=== PATIENT | male | born 1990 | race Caucasian/White ===

== ENCOUNTER → 2017-06-29 | Outpatient (CLI) | payer BC ==
[~2017-06-29] MED LIST: ADVAIR PO; ADVIN10/60 INH; ALBU18002 PO
[2017-06-29 18:06] LABS: BASO % 0.2 %; BASO ABS # 0.02 K/uL (0-0.2); EOS % 7.3 %; EOS ABS # 0.66 K/uL (0-0.5); HEMATOCRIT 43.5 % (42-52); HEMOGLOBIN 14.6 g/dL (14.0-18.0); IG# 0.01 K/uL (0.00-0.02); LYMPH % 17.6 %; LYMPH ABS # 1.59 K/uL (1.2-3.4); MEAN CORPUSCULAR HEMOGLOBIN 28.5 pg (25-34); MEAN CORPUSCULAR HGB CONC 33.6 g/dl (32-36); MEAN PLATELET VOLUME 10.9 fL (7.4-10.4); MONO % 8.7 %; MONO ABS # 0.79 K/uL (0.11-0.59); NEUT % 66.1 %; NEUT ABS # 5.97 K/uL (1.4-6.5); PLATELET COUNT 239 K/uL (130-400); RED CELL DISTRIBUTION WIDTH CV 13.5 % (11.5-14.5); RED CELL DISTRIBUTION WIDTH SD 42.1 fL (36.4-46.3); WHITE BLOOD COUNT 9.04 K/uL (4.8-10.8)
[2017-06-29 18:31] LABS: ALBUMIN 3.6 gm/dl (3.4-5.0); ALT/SGPT 24 U/L (12-78); BLOOD UREA NITROGEN 7 mg/dl (7-18); CALCIUM 9.2 mg/dl (8.5-10.1); CARBON DIOXIDE 30 mmol/L (21-32); CREATININE 1.22 mg/dl (0.60-1.40); GLUCOSE 90 mg/dl (70-99); POTASSIUM 3.8 mmol/L (3.5-5.1); SODIUM 138 mmol/L (136-145)
[2017-06-29 18:34] LABS: ALKALINE PHOSPHATASE 107 U/L (45-117); AST/SGOT 13 U/L (15-37); TOTAL PROTEIN 7.6 gm/dl (6.4-8.2)
== END | disposition home or self-care (01) ==
LOC: C.LAB 16:28
PROVIDERS: ATTEND Physician Assistant
DX: R10.9 Unspecified abdominal pain (principal); K62.5 Hemorrhage of anus and rectum

== ENCOUNTER → 2017-07-07 | Day surgery (SDC) | payer BC ==
[2017-07-02 07:30] VITALS: Ht 177.8 cm; Wt 97.7 kg
[~2017-07-07] VITALS: Ht 177.8 cm; Wt 97.7 kg
[~2017-07-07] MED LIST changes: -ADVAIR PO; +HYDROCORTISONE SOD SUCCINATE 100 MG/2 ML VIAL ONE; +LIDOCAINE HCL 2% 2 ML VIAL (20MG/ML) ONE; +MIDAZOLAM HCL 1 MG/ML 2ML VIAL ONE; +ONDANSETRON INJ 2 MG/ML 2 ML VIAL ONE; +PROPOFOL IV EMULSION 10 MG/ML 20 ML VIAL IV ONE; +SODIUM CHLORIDE 0.9% 500ML 500 ML IV ONE
--- NOTE | 2017-07-07 12:09 | Endo History and Physical ---
History & Physical Date of Service: Jul 07, 2017. Chief Complaint: abdominal pain and rectal bleeding Referring Physician: no PCP assigned History of Present Illness 27 yo CM who presents for colonoscopy secondary to abdominal pain and rectal bleeding. Past Surgical History Hx Cardiac Surgery: No Hx Internal Defibrillator: No Hx Pacemaker: No Hx Abdominal Surgery: No Hx of Implantable Prosthesis: No Hx Post-Op Nausea and Vomiting: No Hx Cancer Surgery: No Hx Thoracic Surgery: No Hx Orthopedic: No Hx Urinary Tract Surgery: No Family History Colon CA, IBD Social History Smoking Status: Never Smoker Hx Substance Use: No Hx Alcohol Use: Yes (SOCIALLY) Allergies Coded Allergies: Amoxicillin (Unverified Allergy, Severe, HIVES, THROAT SWELLING, 07/02/17) Current Medications Reported Home Medications Medications Dose Route/Sig Max Daily Dose Days Date Category Advair Diskus 100/50 60 Dose (Fluticasone Prop/Salmeterol) 1 Ea Aerp 1 Puff INH BID 07/02/17 Reported Proair Respiclick (Albuterol Sulfate) 108 Mcg/Act Aer 1 Puff PO DAILY PRN 02/07/16 Reported Vital Signs Weight (Kilograms): 97.73 Height (Feet): 5 Height (Inches): 10 Date Time Temp Pulse Resp B/P (MAP) Pulse Ox O2 Delivery O2 Flow Rate FiO2 07/07/17 10:59 36.6 113 20 152/89 (110) 97 Room Air Physical Exam General Appearance: WD/WN, no apparent distress Respiratory/Chest: Auscultation: breath sounds normal Cardiovascular: Heart Auscultation: RRR Abdomen: Bowel Sounds: normal Inspection & Palpation: soft, non-distended, no tenderness, guarding & rebound Assessment and Plan Assessment: 27 yo CM who presents for colonoscopy secondary to abdominal pain and rectal bleeding. Plan: Proceed with colonoscopy.
--- NOTE | 2017-07-07 12:49 | GI REPORT ---
Procedure Date: 07/07/2017 11:44 AM Procedure: Colonoscopy Indications: Generalized abdominal pain, Rectal bleeding Medicines: Monitored Anesthesia Care Complications: No immediate complications. Estimated Blood Loss: Estimated blood loss: none. Procedure: Pre-Anesthesia Assessment: - Prior to the procedure, a History and Physical was performed, and patient medications and allergies were reviewed. The patient's tolerance of previous anesthesia was also reviewed. The risks and benefits of the procedure and the sedation options and risks were discussed with the patient. All questions were answered, and informed consent was obtained. Prior Anticoagulants: The patient has taken no previous anticoagulant or antiplatelet agents. ASA Grade Assessment: II - A patient with mild systemic disease. After reviewing the risks and benefits, the patient was deemed in satisfactory condition to undergo the procedure. After I obtained informed consent, the scope was passed under direct vision. Throughout the procedure, the patient's blood pressure, pulse, and oxygen saturations were monitored continuously. The scope was introduced through the anus and advanced to the terminal ileum. The colonoscopy was performed without difficulty. The patient tolerated the procedure well. The quality of the bowel preparation was good. The terminal ileum, ileocecal valve, appendiceal orifice, and rectum were photographed. Findings: The perianal and digital rectal examinations were normal. Inflammation characterized by erythema, loss of vascularity and confluent ulcerations was found in a continuous and circumferential pattern from the rectum to the cecum. No sites were spared. This was severe. Biopsies were taken with a cold forceps for histology. Fluid aspiration for stool studies was performed in the entire colon. Impression: - Pancolitis ulcerative colitis. Inflammation was found from the rectum to the cecum. This was severe. Biopsied. - Fluid aspiration was performed. Recommendation: - Resume previous diet. - Repeat colonoscopy for surveillance based on pathology results. - Return to GI office as previously scheduled. - Use prednisone 40 mg PO once a day and taper over 8 weeks. Bladimir Garcia DO 07/07/2017 12:48:53 PM This report has been signed electronically. Note Initiated On: 07/07/2017 11:44 AM I attest to the content of the Intraoperative Record and orders documented therein, exceptions below
--- NOTE | 2017-07-07 12:58 | Anesthesiology Progress Note ---
Anesthesia Post Op Note Date & Time Jul 07, 2017 at 12:57 Vital Signs Pain Intensity: 0 Vital Signs Past 12 Hours Date Time Temp Pulse Resp B/P (MAP) Pulse Ox O2 Delivery O2 Flow Rate FiO2 07/07/17 12:53 90 20 130/83 (99) 98 Room Air 07/07/17 12:37 99 20 128/77 (94) 94 Room Air 07/07/17 10:59 36.6 113 20 152/89 (110) 97 Room Air Notes Mental Status: alert / awake / arousable, participated in evaluation Pt Amnestic to Procedure: Yes Nausea / Vomiting: adequately controlled Pain: adequately controlled Airway Patency, RR, SpO2: stable & adequate BP & HR: stable & adequate Hydration State: stable & adequate Anesthetic Complications: no major complications apparent
[2017-07-07 13:08] VITALS: BP 140/92; PULSE 84; O2SAT 100
--- NOTE | 2017-07-07 13:11 | Discharge Instructions ---
Endoscopy Patient Instructions Date / Procedure(s) Performed Jul 07, 2017. Colonoscopy Allergy Information Coded Allergies: Amoxicillin (Unverified Allergy, Severe, HIVES, THROAT SWELLING, 07/02/17) Discharge Date / Findings Jul 07, 2017. Ulcerative pancolitis s/p biopsies Stool aspirate collected Medication Instructions 1) Start Prednisone taper at 40mg by mouth daily for 7 days, then decrease by 5 mg each week for an 8 week total taper. 2) OK to resume all medications today as prescribed Reported Home Medications Medications Dose Route/Sig Max Daily Dose Days Date Category Advair Diskus 100/50 60 Dose (Fluticasone Prop/Salmeterol) 1 Ea Aerp 1 Puff INH BID 07/02/17 Reported Proair Respiclick (Albuterol Sulfate) 108 Mcg/Act Aer 1 Puff PO DAILY PRN 02/07/16 Reported Provider Instructions Activity Restrictions - No exercising or heavy lifting for 24 hours. - Do not drink alcohol the day of the procedure. - Do not drive a car or operate machinery until the day after the procedure. - Do not make any important decisions or sign important papers in 24 hours after the procedure. Following Day: - Return to full activity which may include returning to work/school. Diet Start your diet with liquids and light foods (jello, soup, juice, toast). Then eat your usual diet if not nauseated. Treatment For Common After Affects For mild abdominal pain, bloating, or excessive gas: - Rest - Eat lightly - Lie on right side Follow-Up Information Follow-up with no PCP assigned as scheduled Anesthesia Information What You Should Know You have had a procedure that required some medicine to reduce anxiety and discomfort. This treatment is called moderate sedation. After receiving the treatment, you may be sleepy, but you will be able to breathe on your own. The effects of the treatment may last for several hours. Follow these instructions along with Activity/Diet recommendations noted above: * Do NOT do anything where dizziness or clumsiness would be dangerous. * Rest quietly at home today, then you can be up and about tomorrow. * Have a responsible person stay with you the rest of today. * You may have had an I.V. today. If so, you may take the dressing off later today. Recommendations Call your doctor if: * Trouble breathing * Continuous vomiting for more than 24 hours * Temperature above 101 degrees * Severe abdominal pain or bloating * Pain not relieved by pain medicine ordered * There is increased drainage or redness from any incision * A large amount of rectal bleeding greater than 2-3 tablespoons. (If you had a polyp/s removed or have hemorrhoids, a small amount of blood - from the rectum is to be expected.) * You have any unanswered questions or concerns. IN THE EVENT OF A SERIOUS EMERGENCY, GO TO THE NEAREST EMERGENCY ROOM Your discharge instructions were prepared by provider Bladimir Garcia. Patient Instructions Signature Page Tyrell Farley Patient (or Guardian) Signature/Date: I have read and understand the instructions given to me by my caregivers. Caregiver/RN/Doctor Signature/Date: The above-named patient and/or guardian has received patient instructions on this date. + Original Patient Signature Page (only) stays with chart. Please make copy for patient.
== END | disposition home or self-care (01) ==
LOC: C.GI 10:41
PROVIDERS: ATTEND Internal Medicine
DX: R10.9 Unspecified abdominal pain (principal); K52.9 Noninfective gastroenteritis and colitis, unspecified; K62.6 Ulcer of anus and rectum; K63.3 Ulcer of intestine; K62.5 Hemorrhage of anus and rectum; J45.909 Unspecified asthma, uncomplicated; Z80.0 Family history of malignant neoplasm of digestive organs; Z88.1 Allergy status to other antibiotic agents; Z90.89 Acquired absence of other organs

== ENCOUNTER → 2017-08-03 | Outpatient (CLI) | payer BC ==
[~2017-08-03] MED LIST changes: -HYDROCORTISONE SOD SUCCINATE 100 MG/2 ML VIAL ONE; -LIDOCAINE HCL 2% 2 ML VIAL (20MG/ML) ONE; -MIDAZOLAM HCL 1 MG/ML 2ML VIAL ONE; -ONDANSETRON INJ 2 MG/ML 2 ML VIAL ONE; -PROPOFOL IV EMULSION 10 MG/ML 20 ML VIAL IV ONE; -SODIUM CHLORIDE 0.9% 500ML 500 ML IV ONE
[2017-08-03 12:45] LABS: BASO % 0.1 %; BASO ABS # 0.01 K/uL (0-0.2); EOS % 0.4 %; EOS ABS # 0.05 K/uL (0-0.5); HEMATOCRIT 42.5 % (42-52); HEMOGLOBIN 13.5 g/dL (14.0-18.0); IG# 0.03 K/uL (0.00-0.02); LYMPH % 6.4 %; LYMPH ABS # 0.79 K/uL (1.2-3.4); MEAN CELL VOLUME 87.4 fL (80-100); MEAN CORPUSCULAR HEMOGLOBIN 27.8 pg (25-34); MEAN CORPUSCULAR HGB CONC 31.8 g/dl (32-36); MEAN PLATELET VOLUME 10.6 fL (7.4-10.4); MONO % 3.7 %; MONO ABS # 0.46 K/uL (0.11-0.59); NEUT % 89.2 %; NEUT ABS # 10.96 K/uL (1.4-6.5); PLATELET COUNT 221 K/uL (130-400); RED CELL DISTRIBUTION WIDTH CV 15.1 % (11.5-14.5); RED CELL DISTRIBUTION WIDTH SD 48.3 fL (36.4-46.3)
[2017-08-03 12:52] LABS: ALBUMIN 3.9 gm/dl (3.4-5.0); ALT/SGPT 32 U/L (12-78); AST/SGOT 12 U/L (15-37); BLOOD UREA NITROGEN 9 mg/dl (7-18); CALCIUM 8.9 mg/dl (8.5-10.1); CARBON DIOXIDE 29 mmol/L (21-32); CREATININE 1.13 mg/dl (0.60-1.40); GLUCOSE 109 mg/dl (70-99); POTASSIUM 4.2 mmol/L (3.5-5.1); SODIUM 138 mmol/L (136-145)
[2017-08-03 12:55] LABS: ALKALINE PHOSPHATASE 72 U/L (45-117); TOTAL PROTEIN 7.5 gm/dl (6.4-8.2)
[2017-08-03 13:41] LABS: HEP C IGG 13 YRS+OLDER_RFLX NEG (NEG)
[2017-08-05 07:56] LABS: QUANTIF MITOGEN-NIL 9.27 IU/ML; QUANTIFERON NEGATIVE (NEGATIVE); QUANTIFERON NIL 0.03 IU/ML
[2017-08-05 13:40] LABS: VARICELLA ZOS VIR IGM AB <=0.90 (<=0.90)
== END | disposition home or self-care (01) ==
LOC: C.LAB 10:57
PROVIDERS: ATTEND Physician Assistant
DX: K51.00 Ulcerative (chronic) pancolitis without complications (principal)

== ENCOUNTER 2019-06-15 18:11 | Inpatient (IN) ==
[2019-06-15] MEDS ORDERED: ONDANSETRON INJ 2 MG/ML 2 ML VIAL IV STA (18:34)
[2019-06-15] MEDS ORDERED: KETOROLAC 30 MG/ML VIAL IV STA (18:34)
[2019-06-15] MEDS ORDERED: SODIUM CHLORIDE 0.9% 1000ML 1,000 ML IV SCH (18:45)
[2019-06-15 19:15] LABS: Hematocrit (blood only) 30.9 % (42-52); Hemoglobin 10.4 g/dL (14.0-18.0); Mean Corpuscular Hemoglobin 27.4 pg (25-34); Mean Corpuscular Hgb Conc 33.7 g/dL (32-36); Mean Corpuscular Volume 81.5 fL (80-100); Mean Platelet Volume 9.2 fL (7.4-10.4); Platelet Count 560 K/uL (130-400); RDW Coefficient of Variation 13.3 % (11.5-14.5); RDW Standard Deviation 38.7 fL (36.4-46.3); Red Blood Count 3.79 M/uL (4.7-6.1); White Blood Count 11.36 K/uL (4.8-10.8)
[2019-06-15] MEDS: HYDROmorphone INJ 1 MG/ML SYRINGE IV PRN ×2 (19:21→21:01)
[2019-06-15 19:30] LABS: BUN Creatinine Ratio 10.5 (10-20); Creatinine Clr Calc Pharmacy 129.4 ml/min; Est GFR (African American) 137.4; Est GFR (Non-African American) 118.6; Potassium 3.9 mmol/L (3.5-5.1)
[2019-06-15 19:33] LABS: Albumin Globulin Ratio 0.4 (0.9-2); Bilirubin,Total 0.2 mg/dl (0.2-1); C Reactive Protein 16.5 mg/dl (0-0.29); Globulin 4.8 gm/dl (2.5-4.0); Total Protein 6.8 gm/dl (6.4-8.2)
[2019-06-15] MEDS ORDERED: IOVERSOL 100ml IV PRN (19:47)
[2019-06-15 19:59] LABS: Basophils # (auto) 0.01 K/uL (0-0.2); Basophils % (auto) 0.1 %; Eosinophils # (auto) 0.02 K/uL (0-0.5); Eosinophils % (auto) 0.2 %; Immature Granulocytes # (auto) 0.18 K/uL (0.00-0.02); Immature Granulocytes % (auto) 1.6 %; Lymphocytes # (auto) 1.58 K/uL (1.2-3.4); Lymphocytes % (auto) 13.9 %; Monocytes % (auto) 15.8 %; Neutrophils # (auto) 7.77 K/uL (1.4-6.5); Neutrophils % (auto) 68.4 %
--- NOTE | 2019-06-15 19:59 | CT Scan Report ---
CT abd pelvis IV con only CT DOSE: 379.02 mGy.cm HISTORY: Pain Pt c/o abd pain TECHNIQUE: Multiaxial CT images of the abdomen and pelvis were performed following the use of intrave nous contrast. A dose lowering technique was utilized adhering to the principles of ALARA. COMPARISON STUDY: 06/09/2019 FINDINGS: Lung bases are clear. Liver spleen and pancreas are unremarkable. There continues to be general colonic wall thickening and/or wall edematous change throughout the bul k of the colon. There is a component of pericolonic infiltrative change. These findings are similar. There is no evidence for free air. There is no evidence for abscess or co llection. There are several reactive mesenteric nodes. These are similar. The appendix is normal. IMPRESSION: 1. No significant change from the prior study. 2. Findings again considered consistent with that of a generalized colitis and/or ulcerative colitis. 3. Moderate stable pericolonic infiltrative change. 4. No evidence for abscess collection or obstruction. ACT 112: Negative or not required by law. The above report was generated using voice recognition software. It may contain grammatical, syntax or spelling errors. Electronically signed by: Kishor Ventura M.D. 06/15/2019 7:58 PM
--- NOTE | 2019-06-15 20:50 | History & Physical Report ---
Date of Service June 15, 2019 Assessment & Plan (1) Ulcerative colitis: Tyrell Farley is a 28 year young man with history of ulcerative colitis here for UC flare Ulcerative colitis Patient in middle of what appears to be a UC flare, Symptoms started after missing Remicade infusion Patient clearly necroinflammatory state with elevated platelet count 546, CRP of 16.5, and we will medically prophylax with Lovenox To treat this acute flare we will treat with IV methylprednisolone 20 mg every 8 hours On-call hand ironer contacted who recommended admission and will see patient in the morning Otherwise supportive care with Zofran for nausea Tylenol Percocet and morphine for pain control depending on severity Normal saline with 20 mEq KCl infusing at 120 mils per hour patient is quite dehydrated from not eating or drinking very much Hematochezia Secondary to UC flare Hemoglobin has dropped 2 points in last 5 days to 10.4. No indication for transfusion at this time but will recheck H&H in the morning Asthma Stable we will continue on home Advair and PRN breathing treatments F/E/N: Normal saline with 20 mEq of potassium chloride at 120/h DVT prophylaxis: Lovenox 40 subcu daily DIS p.o.: Admitted to [facility] for steroids supportive care and GI consults (2) Asthma: History of Present Illness Primary Care Provider: NO PCP Mr. Tyrell Farley is a 28-year-old young man with a past medical history significant of asthma which is well controlled on Advair twice daily and ulcerative colitis first diagnosed in 2016. Patient has been on Remicade therapy started in December 2016 which seems to control his symptoms very well he missed many doses over the summer secondary to arguing with his insurance company and he missed another dose in April after just forgetting to get it done patient has noticed blood in his stool for about the last month, in that time he is also started to develop abdominal pain he describes abdominal pain as left lower quadrant radiating up from there it has gotten progressively worse he describes his stool as having radha blood in it and be extremely loose he has not had a solid bowel movement in some time and the pain in his abdomen is getting getting progressively worse currently he says his pain is as bad as 10 out of 10 before he was on pain medication in the ED he says without a doubt the worst pain he is ever experienced. Patient has had several dry heaving episodes but does not feel nauseous he says is from the pain also of note he has had a greatly decreased appetite for last month getting worse he is also drinking less although of late mom has been forcing him to drink more buying propels Gatorade's fruit juices water whenever he will drink. He declines any other symptoms, no chest pain no shortness of breath no palpitations no fever no chills no recent sick contacts. Patient presents emergency department a week ago for similar symptoms where he was treated with pain medication and Zofran and discharged without steroids to follow-up with GI he has been suffering at home and decided to come back in today. In emergency department patient was given IV fluid as well as Dilaudid for pain, pain is currently better controlled though he still rates it as a 7. Patient claims there is still blood in stool and he is will provide a sample of that. 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 Patient does smoke cigarettes about a pack a day When discussing CODE STATUS with patient he curiously decided that he would prefer to be DNR/DNI his mother got upset with him and he decided to be full code. Allergies Allergy/AdvReac Type Severity Reaction Status Date / Time amoxicillin Allergy Severe HIVES, Verified 06/15/19 20:48 THROAT SWELLING Home Medications Home Medications Medication Instructions Recorded Confirmed Type Remicade 1 dose IV DIRECTED 07/22/18 06/15/19 History albuterol sulfate [ProAir HFA] 2 puff INHALATION Q4H PRN 07/22/18 06/15/19 History fluticasone propion-salmeterol 2 puff INHALATION BID 06/09/19 06/15/19 History [Wixela Inhub] acetaminophen-codeine 1 tab PO TID PRN 06/15/19 06/15/19 History [Tylenol-Codeine #3] ondansetron 4 mg TRANSLINGUAL Q8H PRN 06/15/19 06/15/19 History Past Med/Surg History Medical History Asthma inhalers daily/prn Ulcerative colitis Surgical History History of colonoscopy History of tonsillectomy History of wisdom tooth extraction Family History Other No family history of adverse response to anesthesia Social History Preferred Language: Greenlandic Communication Ability: Effective Materials Manager Required: No Beliefs That Will Affect Care: None Current Living Situation: Parent and Family Current Living Situation Comment: Lives with parents Other Information That Helps Us Care for You: No Feels Safe at Home: Yes Safety Concerns: Feels Safe At This Time Smoking Status: Current every day smoker Tobacco Type: cigarettes ; Cigarettes Per Day: 6 a day ; Second Hand Exposure: No ; Tobacco Cessation Education Requested by Patient: No Hx Alcohol Use: No Hx Substance Use: No Review of Systems Constitutional: + fatigue and + anorexia; no fever, no chills and no body aches Eyes: no problem reported Ear, Nose, Mouth, Throat: no problem reported Respiratory: no problem reported Cardiovascular: no problem reported Gastrointestinal: + abdominal pain (Worst pain of his life), + early satiety, + diarrhea/loose stools and + blood in stools; no nausea and no vomiting Genitourinary: no dysuria Integumentary: no rash and no lesions Physical Exam Physical Exam: Constitutional: Uncomfortable appearing 28 year old gentleman lying in bed with mother and grandma present in room Eyes: EOMMI bilaterally ENMT: No abnormalities detected Respiratory: Breathing comfortably, chest expansion equal, lung sounds vesicular in all lung yang. Cardiovascular: Heart sounds dual, no murmurs rubs skips or gallops, regular rate regular rhythm Gastrointestinal: Abdomen soft, very tender across abdomen Skin: Warm dry well perfused Results & Data Vital Signs (Past 12 Hours) Vital Signs Temp Pulse Pulse Resp BP BP Pulse Ox 06/15/19 20:00 96 H 16 147/88 H 98 06/15/19 19:30 91 H 15 133/93 97 06/15/19 19:26 90 18 146/87 H 99 06/15/19 19:01 98 06/15/19 18:14 36.6 C 112 H 18 142/88 H 98 Supervising Physician Co-Signing Physician Notes Patient seen and examined, chart reviewed, case discussed with Dr. Topete and I agree with his assessment and plan as documented above. Briefly, patient is a 28-year-old male with history of ulcerative colitis previously on steroids now on Remicade presenting with suspected acute flare. Patient had some treatment labs in his Remicade due to insurance issues. Presents with abdominal pain, bloody diarrhea. On exam he is afebrile, hemodynamically stable, nontoxic in appearance, flat affect Skinwarm, dry, intact, no rashes/lesions HEENTnormocephalic/atraumatic, pupils equal and react to light, moist mucous membranes, no oropharyngeal lesions, neck supple Heart+ S1/S2, regular, no murmur/rub/gallops Lungsequal air entry bilaterally, no rales/rhonchi/wheezes Abdomen + bowel sounds, soft and diffusely tender throughout, no rebound or peritoneal signs but with voluntary guarding Extremitieswarm, well-perfused Labs and images reviewed. Significant for leukocytosis with WBC = 11.36, normochromic/normocytic anemia Hgb = 10.4 and HCT = 30.9, elevated platelets at 560, elevated ESR and CRP CT of the abdomen consistent with generalized colitis without abscess or obstruction Assessment/[id number] male with history of UC presenting with suspected acute flare in setting of missed Remicade doses Admit to medical floor Solu-Medrol 20 mg IV every 8 Morphine as needed for pain IV fluid and electrolyte repletion Question starting mesalamine GI consultation appreciated Remainder of plan as above Resident Activity Tracking Resident Involvement: Resident Care Provided Care Provided: Adult Hospital Medicine (1) Ulcerative colitis Digestive disease complication type: unspecified complication Ulcerative colitis location: unspecified ulcerative colitis location Qualified Code(s): K51.919 - Ulcerative colitis, unspecified with unspecified complications
[2019-06-15 21:02] LABS: Appearance Urine Clear (Clear); Bilirubin Urine Negative (Negative); Blood Urine Negative (Negative); Color Urine Yellow; Glucose Urine UA Negative (Negative); Ketones Urine Negative (Negative); Leukocyte Esterase Urine Negative (Negative); Nitrite Urine Negative (Negative); Protein Urine Negative (Negative); Specific Gravity Urine > 1.045 (1.000-1.030); Urobilinogen Urine Negative (Negative); pH Urine 7.5 (4.5-7.5)
--- NOTE | 2019-06-15 22:29 | Emergency Department Note ---
Entered by Joselin Braun acting as a scribe for Dixon Forrest MD History of Present Illness General Chief complaint: GI Assessment Stated complaint: COLITIS FLARE UP Time Seen by Provider: 06/15/19 18:27 Source: patient Mode of arrival: ambulatory Limitations: no limitations History of Present Illness Onset (ago): day(s) 6 Location: abdomen Radiation: non-radiation Pain Consistency: + constant Maximum Pain Intensity: 10 Current Pain Intensity: 10 Relieved By: + medication (Tylenol) Exacerbated By: + none Associated symptoms: + loss of appetite and + other (+abdominal pain, +dry heaves, +watery diarrhea, -blood in stool) Treatments prior to arrival: none The patient is a 28 year old male who presents to the ED with complaints of needing a GI assessment. He sees Dr. Garcia for a history of ulcerative colitis and states he has been experiencing increased abdominal pain for the past 1 week. He rates his pain as a 10/10 in severity. Tylenol has provided minimal relief and he has not had any in 2 days. He has not been vomiting but admits to dry heaves and a loss of appetite. He is normally on Remicade and last had an infusion on 06/01/2019. He cannot remember the last time he was on steroids for his symptoms. He states his stools have been "watery" but denies any blood in the stool. His next follow up with GI is not until June 26. Home Medications Home Medications Medication Instructions Recorded Confirmed Type Remicade 1 dose IV DIRECTED 07/22/18 06/15/19 History albuterol sulfate [ProAir HFA] 2 puff INHALATION Q4H PRN 07/22/18 06/15/19 History fluticasone propion-salmeterol 2 puff INHALATION BID 06/09/19 06/15/19 History [Wixela Inhub] acetaminophen-codeine 1 tab PO TID PRN 06/15/19 06/15/19 History [Tylenol-Codeine #3] ondansetron 4 mg TRANSLINGUAL Q8H PRN 06/15/19 06/15/19 History Allergies Allergy/AdvReac Type Severity Reaction Status Date / Time amoxicillin Allergy Severe HIVES, Verified 06/15/19 20:48 THROAT SWELLING Past Med/Surg History Medical History Asthma inhalers daily/prn Ulcerative colitis Surgical History History of colonoscopy History of tonsillectomy History of wisdom tooth extraction Family History Other No family history of adverse response to anesthesia Social History Preferred Language: Haitian Communication Ability: Effective Bottle House Quality Control Technician Required: No Beliefs That Will Affect Care: None Current Living Situation: Parent and Family Current Living Situation Comment: Lives with parents Other Information That Helps Us Care for You: No Feels Safe at Home: Yes Safety Concerns: Feels Safe At This Time Smoking Status: Current every day smoker Tobacco Type: cigarettes ; Cigarettes Per Day: 6 a day ; Second Hand Exposure: No ; Tobacco Cessation Education Requested by Patient: No Hx Alcohol Use: No Hx Substance Use: No Review of Systems See HPI for pertinent positives & negatives. and A total of 10 systems reviewed and were otherwise negative Physical Exam Vital Signs Vital Signs - 24 hr 06/15/19 18:14 06/15/19 19:01 06/15/19 19:26 Temperature 36.6 C Temperature Source Oral Pulse Rate 112 H Pulse Rate [Apical] 90 Pulse Rate from SpO2 Sensor Respiratory Rate 18 18 Respiratory Effort / Characteristics Non-Labored Respiratory Depth Normal Blood Pressure 142/88 H Blood Pressure [Left Arm] 146/87 H Blood Pressure Mean 106 Blood Pressure Mean [Left Arm] 106 Pulse Oximetry 98 98 99 Oxygen Delivery Method Room Air Room Air Room Air Sepsis Recent Fever Within 48 Hours No Sepsis New/Unexplained Change in Mental Status No Sepsis Action Taken by Nursing No Action Required 06/15/19 19:30 06/15/19 20:00 06/15/19 20:30 Temperature Temperature Source Pulse Rate 91 H 96 H 81 Pulse Rate [Apical] Pulse Rate from SpO2 Sensor 91 H 98 H Respiratory Rate 15 16 14 Respiratory Effort / Characteristics Respiratory Depth Blood Pressure 133/93 147/88 H 139/89 Blood Pressure [Left Arm] Blood Pressure Mean 99 97 103 Blood Pressure Mean [Left Arm] Pulse Oximetry 97 98 Oxygen Delivery Method Room Air Room Air Sepsis Recent Fever Within 48 Hours Sepsis New/Unexplained Change in Mental Status Sepsis Action Taken by Nursing 06/15/19 21:00 Temperature Temperature Source Pulse Rate 96 H Pulse Rate [Apical] Pulse Rate from SpO2 Sensor 97 H Respiratory Rate 21 Respiratory Effort / Characteristics Respiratory Depth Blood Pressure 151/89 H Blood Pressure [Left Arm] Blood Pressure Mean 100 Blood Pressure Mean [Left Arm] Pulse Oximetry 97 Oxygen Delivery Method Room Air Sepsis Recent Fever Within 48 Hours Sepsis New/Unexplained Change in Mental Status Sepsis Action Taken by Nursing GENERAL: Awake, alert, well-appearing, in no acute distress HENT: Normocephalic, atraumatic. Oropharynx unremarkable. EYES: Normal conjunctiva. Sclera non-icteric. NECK: Supple. No nuchal rigidity. FROM. No JVD. RESPIRATORY: Clear to auscultation. CARDIAC: Regular rate, normal rhythm. Extremities warm and well perfused. Pulses equal. ABDOMEN: Soft, non-distended. Minimal tenderness to palpation in LLQ. No rebound or guarding. No masses. RECTAL: Deferred. MUSCULOSKELETAL: Chest examination reveals no tenderness. The back is sym metrical on inspection without obvious abnormality. There is no CVA tenderness to palpation. No joint edema. LOWER EXTREMITIES: Calves are equal size bilaterally and non-tender. No edema. No discoloration. NEURO: Normal sensorium. No sensory or motor deficits noted. SKIN: No rash or jaundice noted. Course Course 1829: The patient was evaluated in room A12 and a complete history and physical were performed. 2014: I discussed the patients case with Dr. Costello, Gastroenterology. If he tests negative for C-Diff, we can start him on steroids. The patient will be further evaluated. 2042: I [facility] the [facility] The patient will be further evaluated. 2044: I reevaluated the patient. He is resting comfortably. I discussed his results and my recommendation he remain in the hospital for further evaluation and management and he is agreeable with the plan. Administered Medications Enoxaparin Sodium (Lovenox) 40 mg SQ Q24H GIFTY Stop: 07/15/19 22:29 Last Admin: 06/15/19 23:01 Dose: 40 mg Documented by: [id number] Fluticasone/Vilanterol (Breo Ellipta 200/25 Mcg Inh) 1 puffs INH DAILY GIFTY; Protocol Stop: 07/15/19 22:59 Last Admin: 06/15/19 23:02 Dose: 1 puffs Documented by: [id number] Potassium Chloride/Sodium Chloride (Normal Saline W/20 Meq Kcl) 20 meq in 1,000 mls @ 120 mls/hr IV .Q8H20M GIFTY Stop: 07/15/19 22:44 Last Admin: 06/15/19 23:01 Dose: 120 mls/hr Documented by: [id number] Methylprednisolone 20 mg/ (Syringe) 0.32 mls @ 1.5 mls/min IV Q8H GIFTY Stop: 07/15/19 22:59 Last Admin: 06/15/19 23:01 Dose: 1.5 mls/min Documented by: [id number] Morphine Sulfate (Morphine Sulfate) 2 mg IV Q2H PRN PRN Reason: Pain Stop: 06/29/19 22:29 Last Admin: 06/15/19 23:39 Dose: 2 mg Documented by: [id number] Discontinued Medications Hydromorphone HCl (Dilaudid) 1 mg IV Q15M PRN PRN Reason: Pain Stop: 06/29/19 18:33 Last Admin: 06/15/19 21:01 Dose: 1 mg Documented by: [id number] Admin: 06/15/19 19:21 Dose: 1 mg Documented by: [id number] Sodium Chloride (Nss 1000ml) 1,000 mls @ 999 mls/hr IV .Q1H1M GIFTY Stop: 06/15/19 19:45 Last Infusion: 06/15/19 20:03 Dose: 0 mls/hr Documented by: [id number] Admin: 06/15/19 19:02 Dose: 999 mls/hr Documented by: [id number] Ioversol (Optiray 320 100ml) 93 ml IV ONCE PRN PRN Reason: Interaction Checking Stop: 06/19/19 19:46 Last Admin: 06/15/19 19:47 Dose: 93 ml Documented by: [id number] Ketorolac Tromethamine (Toradol) 30 mg IV NOW STA Stop: 06/15/19 18:35 Last Admin: 06/15/19 19:21 Dose: 30 mg Documented by: [id number] Ondansetron HCl (Zofran) 4 mg IV NOW STA Stop: 06/15/19 18:35 Last Admin: 06/15/19 19:21 Dose: 4 mg Documented by: [id number] Medical Decision Making Differential Diagnosis Differential diagnoses includes but is not limited to gastritis, peptic ulcer disease, GERD, gallbladder disease, pancreatitis, small bowel obstruction, acute coronary syndrome, pericarditis, ischemic bowel, irritable bowel disease, irritable bowel syndrome, appendicitis, diverticulitis, malignancy, hernia, urinary tract infection, torsion, perforation, trauma, infectious. Medical Records Attestation: I reviewed the patient's medical records. Home Medications Current Medication List: was personally reviewed by me Laboratory Data Attestation: I reviewed the patient's lab results. Result diagrams: 06/15/19 19:00 06/15/19 19:00 Lab Results 06/15/19 06/15/19 06/15/19 Range/Units 19:00 19:00 19:00 WBC 11.36 H (4.8-10.8) K/uL RBC 3.79 L (4.7-6.1) M/uL Hgb 10.4 L (14.0-18.0) g/dL Hct 30.9 L (42-52) % MCV 81.5 (80-100) fL MCH 27.4 (25-34) pg MCHC 33.7 (32-36) g/dL RDW Std Deviation 38.7 (36.4-46.3) fL RDW Coeff of Marek 13.3 (11.5-14.5) % Plt Count 560 H (130-400) K/uL MPV 9.2 (7.4-10.4) fL Immature Gran % (Auto) 1.6 % Neut % (Auto) 68.4 % Lymph % (Auto) 13.9 % [place] % (Auto) 15.8 % Eos % (Auto) 0.2 % Baso % (Auto) 0.1 % Immature Gran # (Auto) 0.18 H (0.00-0.02) K/uL Neut # (Auto) 7.77 H (1.4-6.5) K/uL Lymph # (Auto) 1.58 (1.2-3.4) K/uL [place] # (Auto) 1.80 H (0.11-0.59) K/uL Eos # (Auto) 0.02 (0-0.5) K/uL Baso # (Auto) 0.01 (0-0.2) K/uL ESR > 90 H (0-14) mm/hr Sodium 134 L (136-145) mmol/L Potassium 3.9 (3.5-5.1) mmol/L Chloride 98 (98-107) mmol/L Carbon Dioxide 31 (21-32) mmol/L Anion Gap 5.0 (3-11) BUN 9 (7-18) mg/dl Creatinine 0.85 (0.6-1.4) mg/dl Est Cr Clr Drug Dosing 129.4 ml/min Est GFR ( Amer) 137.4 Est GFR (Non-Af Amer) 118.6 BUN/Creatinine Ratio 10.5 (10-20) Glucose 132 H (70-99) mg/dl Calcium 9.0 (8.5-10.1) mg/dl Total Bilirubin 0.2 (0.2-1) mg/dl AST 17 (15-37) U/L ALT 33 (12-78) U/L Alkaline Phosphatase 72 (45-117) U/L C-Reactive Protein 16.50 H (0-0.29) mg/dl Total Protein 6.8 (6.4-8.2) gm/dl Albumin 2.0 L (3.4-5.0) gm/dl Globulin 4.8 H (2.5-4.0) gm/dl Albumin/Globulin Ratio 0.4 L (0.9-2) Lipase 104 (73-393) U/L Urine Color Urine Appearance (Clear) Urine pH (4.5-7.5) Ur Specific [place] (1.000-1.030) Urine Protein (Negative) Urine Glucose (UA) (Negative) Urine Ketones (Negative) Urine Blood (Negative) Urine Nitrite (Negative) Urine Bilirubin (Negative) Urine Urobilinogen (Negative) Ur Leukocyte Esterase (Negative) Stl C. diff Tox B Gene (Neg) 06/15/19 06/15/19 Range/Units 20:44 20:44 WBC (4.8-10.8) K/uL RBC (4.7-6.1) M/uL Hgb (14.0-18.0) g/dL Hct (42-52) % MCV (80-100) fL MCH (25-34) pg MCHC (32-36) g/dL RDW Std Deviation (36.4-46.3) fL RDW Coeff of Marek (11.5-14.5) % Plt Count (130-400) K/uL MPV (7.4-10.4) fL Immature Gran % (Auto) % Neut % (Auto) % Lymph % (Auto) % [place] % (Auto) % Eos % (Auto) % Baso % (Auto) % Immature Gran # (Auto) (0.00-0.02) K/uL Neut # (Auto) (1.4-6.5) K/uL Lymph # (Auto) (1.2-3.4) K/uL [place] # (Auto) (0.11-0.59) K/uL Eos # (Auto) (0-0.5) K/uL Baso # (Auto) (0-0.2) K/uL ESR (0-14) mm/hr Sodium (136-145) mmol/L Potassium (3.5-5.1) mmol/L Chloride (98-107) mmol/L Carbon Dioxide (21-32) mmol/L Anion Gap (3-11) BUN (7-18) mg/dl Creatinine (0.6-1.4) mg/dl Est Cr Clr Drug Dosing ml/min Est GFR ( Amer) Est GFR (Non-Af Amer) BUN/Creatinine Ratio (10-20) Glucose (70-99) mg/dl Calcium (8.5-10.1) mg/dl Total Bilirubin (0.2-1) mg/dl AST (15-37) U/L ALT (12-78) U/L Alkaline Phosphatase (45-117) U/L C-Reactive Protein (0-0.29) mg/dl Total Protein (6.4-8.2) gm/dl Albumin (3.4-5.0) gm/dl Globulin (2.5-4.0) gm/dl Albumin/Globulin Ratio (0.9-2) Lipase (73-393) U/L Urine Color Yellow Urine Appearance Clear (Clear) Urine pH 7.5 (4.5-7.5) Ur Specific [place] > 1.045 H (1.000-1.030) Urine Protein Negative (Negative) Urine Glucose (UA) Negative (Negative) Urine Ketones Negative (Negative) Urine Blood Negative (Negative) Urine Nitrite Negative (Negative) Urine Bilirubin Negative (Negative) Urine Urobilinogen Negative (Negative) Ur Leukocyte Esterase Negative (Negative) Stl C. diff Tox B Gene Negative Cdiff Gene (Neg) Imaging Data Radiologist's Impression: Radiology results as stated below per my review and the radiologist's interpretation: CT abd pelvis IV con only CT DOSE: 379.02 mGy.cm HISTORY: Pain Pt c/o abd pain TECHNIQUE: Multiaxial CT images of the abdomen and pelvis were performed following the use of intravenous contrast. A dose lowering technique was utilized adhering to the principles of ALARA. COMPARISON STUDY: 06/09/2019 FINDINGS: Lung bases are clear. Liver spleen and pancreas are unremarkable. There continues to be general colonic wall thickening and/or wall edematous change throughout the bulk of the colon. There is a component of pericolonic infiltrative change. These findings are similar. There is no evidence for free air. There is no evidence for abscess or collection. There are several reactive mesenteric nodes. These are similar. The appendix is normal. IMPRESSION: 1. No significant change from the prior study. 2. Findings again considered consistent with that of a generalized colitis and/or ulcerative colitis. 3. Moderate stable pericolonic infiltrative change. 4. No evidence for abscess collection or obstruction. ACT 112: Negative or not required by law. The above report was generated using voice recognition software. It may contain grammatical, syntax or spelling errors. Electronically signed by: Kishor Ventura M.D. 06/15/2019 7:58 PM Blood Pressure Blood Pressure Findings: Elevated blood pressure Blood Pressure Disposition: further management by hospitalist MDM Narrative This is a 28-year-old male who presents emergency department complaining of being unable to keep any food down. The patient has a history of ulcerative colitis. He missed several shots of Remicade several months ago however had his last shot at the end of May. He reports diarrhea that appears to be clear liquid. He does have a slight elevation in his white blood cell count. Serial abdominal examinations were performed in this patient in the emergency department and at no time the patient exhibited surgical abdomen. I did discuss the case with both gastroenterology as well as the hospitalist service. The patient's family would like him admitted. He was given Dilaudid for the pain. Repeat examination revealed improvement the patient's symptoms. Impression & Plan Ulcerative colitis, Abdominal pain Discharge Plan Visit Data *Final* Discharge Date/Time: 06/15/19 22:18 Chief Complaint: GI Assessment Stated Complaint: COLITIS FLARE UP ED Provider: Dixon Forrest Discharge Problem: Ulcerative colitis, Abdominal pain Patient Disposition: Admitted As Inpatient Discharge Instructions Interventions: ED Discharge Assessment Last Done: 06/15/19 22:18 Discharge Problem: Ulcerative colitis Qualifiers: Ulcerative colitis location: unspecified ulcerative colitis location Digestive disease complication type: unspecified complication Qualified Code(s): K51.919 - Ulcerative colitis, unspecified with unspecified complications Abdominal pain Qualifiers: Abdominal location: unspecified location Qualified Code(s): R10.9 - Unspecified abdominal pain The scribe's documentation has been prepared under my direction and personally reviewed by me in its entirety. I confirm that the note above accurately reflects all work, treatment, procedures, and medical decision making performed by me.
[2019-06-15] MEDS ORDERED: ACETAMINOPHEN 325 MG TAB PO PRN (22:30)
[2019-06-15] MEDS ORDERED: ALBUTEROL HFA 8 GM INHALER INH PRN (22:35)
[2019-06-15] MEDS: ENOXAPARIN INJ 40 MG/0.4 ML SYR SQ SCH (23:01)
[2019-06-15] MEDS: methylPREDNISolone 20 MG in SYRINGE 0 ML IV SCH (23:01)
[2019-06-15] MEDS: NSS + 20MEQ KCL 20 MEQ/1,000 ML BAG IV SCH (23:01)
[2019-06-15] MEDS: FLUTICASONE/VILANTEROL 200/25MCG 14 PUFFS/INHALER INH SCH (23:02)
[2019-06-15] MEDS: MoRPHine SULFATE 2 MG/ML CARP IV PRN (23:39)
[2019-06-16] MEDS: MoRPHine SULFATE 2 MG/ML CARP IV PRN ×6 (04:03→22:15)
--- NOTE | 2019-06-16 05:17 | Billing Data ---
Date of Service June 16, 2019 Coding Level of Care Code 65181 Initial Inpt Care Lvl 2
[2019-06-16] MEDS: methylPREDNISolone 20 MG in SYRINGE 0 ML IV SCH ×3 (06:31→22:12)
[2019-06-16] MEDS: NSS + 20MEQ KCL 20 MEQ/1,000 ML BAG IV SCH ×2 (07:20→15:25)
[2019-06-16] MEDS: FLUTICASONE/VILANTEROL 200/25MCG 14 PUFFS/INHALER INH SCH (07:21)
[2019-06-16 09:08] LABS: Hematocrit (blood only) 29.8 % (42-52); Hemoglobin 9.7 g/dL (14.0-18.0)
--- NOTE | 2019-06-16 13:17 | Medical Student Progress Note ---
Date of Service June 16, 2019 Assessment & Plan Treatment Plan Tyrell Mccarty) is a 28-year-old male with a history of Ulcerative Colitis who presented to the ED on 06/15 with nausea, abdominal pain, and bloody diarrhea who was admitted to our service for a presumed Ulcerative Colitis flare. Acute exacerbation of Ulcerative colitis: - Patient is typically well-managed on Remicade and has never had a flare in the past. - Due to insurance issues, he received his most recent infusion approximately one month late (06/01). - Patient is in a necroinflammatory state with elevated platelet count of 546, CRP of 16.5. - IV methylprednisolone 20 mg q8h to treat flare. - Ondansetron PRN for nausea. - Morphine 2 mg q2h PRN, Tylenol 650 mg q4h PRN, Percocet 5 mg/325 mg q4h PRN for pain depending on severity. - GI consulted. - NPO to allow for bowel rest. - Normal saline with 20 mEq KCl. Bloody Diarrhea: Acute blood loss anemia: - C. diff gene negative, stool culture pending. - Given this result and history of unmanaged UC, this is more likely secondary to ulcerative colitis flare. - Hemoglobin on 06/08 was 12.2, 10.4 in the ED on 06/14, now 9.7. - No indication for transfusion at this time but continue to monitor H&H q8h. - Transfusion goal <7. Asthma: - Currently stable with no acute exacerbations. - Continue home Advair. - PRN breathing treatments. Code: Full DVT prophylaxis: Lovenox 40 SQ QD Dispo: Remain on MedSurg. Anticipate eventual discharge to home. Supervising Attestation Medical Student Supervision Note: I independently interviewed and examined the patient and verified the mayers history and physical, reviewed labs and image studies, discussed the case with the medical student [place] and the resident Dr. Chapman and agree with the findings and care plan. Subjective Sagar is resting comfortably. He states that as compared to his pain of a 10/10 last night it has decreased to a 4-5/10 today and is localized mostly in the lower left quadrant. He states that he is no longer nauseated. He was woken up at night once with the urge to defecate and he passed a bowel movement that he describes as mostly clear liquid with radha red blood. He had two more similar bowel movements this morning. He states that the volume has decreased. He states that he is very thirsty but is otherwise feeling much better overall today than he was yesterday. Review of Systems Review of Systems: All systems reviewed & are unremarkable except as noted in HPI & below Constitutional: no fever, no chills, no sweats, no malaise, no weakness and no insomnia Eyes: no worsening vision Ear, Nose, Mouth, Throat: no problem reported Respiratory: no cough and no dyspnea Cardiovascular: no chest pain, no dyspnea, no edema and no calf pain Gastrointestinal: + abdominal pain, + diarrhea/loose stools and + blood in stools; no belching, no nausea, no vomiting, no fecal incontinence, no constant urge to pass stools and no melena Genitourinary: no problem reported Musculoskeletal: no myalgia, no muscle weakness and no body aches Integumentary: no rash and no lesions Neurologic: no headache(s) Psychiatric: no problem reported Endocrine: no problem reported Hematologic / Lymphatic: no problem reported Allergy / Immunological: no problem reported Physical Exam Physical Exam: General Appearance: Patient is generally well-appearing and resting comfortably in bed on exam. He is cooperative and in no acute distress. HEENT: Not examined. Neck: Not examined. Respiratory: Lungs clear bilaterally to auscultation. No wheezes. Cardiovascular: Regular rate and rhythm. S1 and S2 appreciated. No rubs, murmurs, or gallops. No lower extremity edema. Gastrointestinal: Hypoactive bowel sounds. Tenderness to palpation in the LLQ. No guarding. No organomegaly. MSK: Normal range of motion. Skin: Not examined. Neurological: Alert and oriented x4. Motor and sensory function grossly intact. Psychiatric: Thought pattern clear and organized. Affect appropriate. Genitourinary: Not examined. Lymphatic: Not examined. Results & Data ([facility]) Vital Signs (Past 12 Hours) Vital Signs Pulse Resp BP Pulse Ox 06/16/19 07:34 104 H 97 06/16/19 07:17 146 H 20 127/86 96 Laboratory Results WBC 11.36 CRP 16.5 ESR >90 Hgb Date 06/08 12.2 06/14 10.4 06/[address] Abdomen/Pelvis: No significant change from the prior study. Findings again considered consistent with that of a generalized colitis and/or ulcerative colitis. Moderate stable pericolonic infiltrative change. No evidence for abscess collection or obstruction.
--- NOTE | 2019-06-16 14:46 | Gastrointestinal Consultation ---
Date of Consultation June 16, 2019 Assessment & Plan (1) Ulcerative colitis: (2) Bloody diarrhea: likely UC flare, cdiff negative, await stool stuides which are pending. Recs: 1.continue steroids 20 mg q8h 2.pain control prn 3.supportive care 4.f/u stool studies 5. trend CRP, ESR, and CBC daily 6.if no improvement after 2 days then will likely need colonoscopy thank you for allowing me to participate in the care of this patient. History of Present Illness Attending Physician: Quynh Torres MD 28 yo male with hx UC on remicade here for evaluation. He has been having bloody diarrhea and worsening symptoms of his UC recently, noted LLQ abdominal pains as well. Also notes significant nausea and vomiting, no hematemesis. He gets remicade as an outpatient however he missed a recent dose and traces his sympt oms worsening to that. He was in the ER 1 week ago for similar issues. Labs reviewed, notable for anemia. stool cdiff is negative, culture pending. Allergies Allergy/AdvReac Type Severity Reaction Status Date / Time amoxicillin Allergy Severe HIVES, Verified 06/15/19 20:48 THROAT SWELLING Home Medications Home Medications Medication Instructions Recorded Confirmed Type Remicade 1 dose IV DIRECTED 07/22/18 06/15/19 History albuterol sulfate [ProAir HFA] 2 puff INHALATION Q4H PRN 07/22/18 06/15/19 History fluticasone propion-salmeterol 2 puff INHALATION BID 06/09/19 06/15/19 History [Wixela Inhub] acetaminophen-codeine 1 tab PO TID PRN 06/15/19 06/15/19 History [Tylenol-Codeine #3] ondansetron 4 mg TRANSLINGUAL Q8H PRN 06/15/19 06/15/19 History Patient History Medical History Asthma inhalers daily/prn Ulcerative colitis Surgical History History of colonoscopy History of tonsillectomy History of wisdom tooth extraction Family History Other No family history of adverse response to anesthesia Social History (Reviewed 06/15/19 @ 18:33 by Joselin Connolly Preferred Language: Turkmen Communication Ability: Effective Childcare Attendant Required: No Beliefs That Will Affect Care: None Current Living Situation: Parent and Family Current Living Situation Comment: Lives with parents Other Information That Helps Us Care for You: No Feels Safe at Home: Yes Safety Concerns: Feels Safe At This Time Smoking Status: Current every day smoker Tobacco Type: cigarettes ; Cigarettes Per Day: 6 a day ; Second Hand Exposure: No ; Tobacco Cessation Education Requested by Patient: No Hx Alcohol Use: No Hx Substance Use: No Review of Systems Constitutional: no fever and no chills Respiratory: no cough, no dyspnea and no dyspnea on exertion Cardiovascular: no chest pain and no dyspnea Gastrointestinal: as per Subjective / HPI Psychiatric: no depression and no anxiety Physical Exam Constitutional: WD/WN, vitals as above Respiratory: normal respiratory effort, lungs clear to auscultation Cardiovascular: RRR, no murmur, no edema Gastrointestinal (Abdomen): normal bowel sounds, soft, nontender, no hepatosplenomegaly Musculoskeletal: no lower extremity edema Psychiatric: A+Ox3, euthymic affect Results & Data ([facility]) Vital Signs (Past 12 Hours) Vital Signs Pulse Resp BP Pulse Ox 06/16/19 07:34 104 H 97 06/16/19 07:17 146 H 20 127/86 96 PG Care Time/CCT Total # of Minutes Spent Total Time Spent with Patient: Total time spent is greater than 50% in coordination of care (as documented) at patient's floor/unit and/or counseling patient: Coding Level of Care Code 73324 Inpt Consult Level 3 Diagnoses Ulcerative colitis K51.919 Digestive disease complication type: unspecified complication Ulcerative colitis location: unspecified ulcerative colitis location Bloody diarrhea R19.7 (1) Ulcerative colitis Digestive disease complication type: unspecified complication Ulcerative colitis location: unspecified ulcerative colitis location Qualified Code(s): K51.919 - Ulcerative colitis, unspecified with unspecified complications
[2019-06-16 16:49] LABS: Hematocrit (blood only) 29.6 % (42-52); Hemoglobin 9.8 g/dL (14.0-18.0)
[2019-06-16] MEDS: OXYCODONE/ACETAMINOPHEN 5mg/325mg TAB PO PRN (21:15)
[2019-06-16] MEDS: ENOXAPARIN INJ 40 MG/0.4 ML SYR SQ SCH (22:12)
[2019-06-17] MEDS: NSS + 20MEQ KCL 20 MEQ/1,000 ML BAG IV SCH ×3 (00:09→16:26)
[2019-06-17 00:39] LABS: Hemoglobin 9.9 g/dL (14.0-18.0)
[2019-06-17] MEDS: MoRPHine SULFATE 2 MG/ML CARP IV PRN ×9 (00:55→22:11)
[2019-06-17] MEDS: methylPREDNISolone 20 MG in SYRINGE 0 ML IV SCH ×3 (06:10→22:11)
[2019-06-17 06:38] LABS: Hematocrit (blood only) 29.9 % (42-52); Hemoglobin 9.8 g/dL (14.0-18.0)
[2019-06-17] MEDS: FLUTICASONE/VILANTEROL 200/25MCG 14 PUFFS/INHALER INH SCH (08:16)
[2019-06-17] MEDS: OXYCODONE/ACETAMINOPHEN 5mg/325mg TAB PO PRN ×3 (09:22→23:33)
--- NOTE | 2019-06-17 12:30 | Medical Student Progress Note ---
Date of Service June 17, 2019 Assessment & Plan Treatment Plan Tyrell Mccarty) is a 28-year-old male with a history of Ulcerative Colitis who presented to the ED on 06/15 with an Ulcerative Colitis flare now with acute blood loss anemia. Acute exacerbation of Ulcerative colitis: - Patient is typically well-managed on Remicade and has never had a flare in the past. - Due to insurance issues, he received his most recent infusion approximately one month late (06/01). - ESR (87, down from >90) and CRP (13 down from 16.5) trending down. - Continue IV methylprednisolone 20 mg q8h to treat flare. - Ondansetron PRN for nausea. - Continue Morphine 2 mg q2h PRN, Tylenol 650 mg q4h PRN, Percocet 5 mg/325 mg q4h PRN for pain; encourage patient to use different modalities as needed as pain is not well-controlled. - Normal saline with 20 mEq KCl. - Tolerating soft foods. - If no significant improvement by tomorrow, consider colonoscopy. - Discharge dependent on resolution of severe abdominal pain, tolerance of oral diet, and <6 stools per day. Acute blood loss anemia: - C. diff gene negative, stool culture shows no growth to date. - Given this result and history of unmanaged UC, this is more likely secondary to ulcerative colitis flare. - Hemoglobin has been stable over the past 24 hours and is currently 9.8. - No indication for transfusion at this time but continue to monitor H&H q8h. If it remains stable on next draw, can discontinue. Asthma: - Currently stable with no acute exacerbations. - Continue home Advair. - PRN breathing treatments. Code: Full DVT prophylaxis: Lovenox 40 SQ QD Dispo: Remain on MedSurg. Anticipate eventual discharge to home. Supervising Attestation Medical Student Supervision Note: I independently interviewed and examined the patient and verified the mayers history and physical, reviewed labs and image studies, discussed the case with the medical student [place] and the resident Dr. Chapman and agree with the findings and care plan. Subjective Patient had 3 bouts of diarrhea overnight as well as one this morning. States that the stool has been watery and brown with no radha red blood in the stool itself but rather only on the toilet paper after wiping. He had a soft diet for dinner last night and breakfast this morning. He states that he did not have any nausea, increased pain, or increased diarrhea with food. He is ambulating well. Pain remains a 10/10 and is exacerbated with any movement per patient. He states that the nausea and 'dry heaves' have resolved. Patient endorses an improved mood as compared to home. Does not endorse suicidal ideation or desire for self- mutilation. Review of Systems Review of Systems: All systems reviewed & are unremarkable except as noted in HPI & below Constitutional: no fever, no chills, no sweats, no body aches, no malaise, no weakness and no anorexia Eyes: no worsening vision Ear, Nose, Mouth, Throat: no problem reported Respiratory: no cough, no dyspnea and no wheezing Cardiovascular: no chest pain, no chest pain at rest, no dyspnea on exertion and no edema Gastrointestinal: + abdominal pain, + diarrhea/loose stools and + blood in stools (bright red blood on toilet paper); no belching, no nausea, no vomiting, no fecal incontinence, no constant urge to pass stools and no melena Genitourinary: no hematuria Musculoskeletal: no myalgia and no body aches Integumentary: no rash and no lesions Neurologic: no headache(s) and no confusion Psychiatric: no depression, no hopelessness, no suicidal ideation and no anxiety Endocrine: no problem reported Hematologic / Lymphatic: no night sweats Allergy / Immunological: no wheezing and no cough Physical Exam Physical Exam: General Appearance: Patient is resting comfortably in bed on exam. He is cooperative and in no acute distress. HEENT: Not examined. Neck: Not examined. Respiratory: Lungs clear bilaterally to auscultation. No wheezes. Cardiovascular: Regular rate and rhythm. S1 and S2 appreciated. No flow murmurs. No lower extremity edema. Gastrointestinal: Normoactive bowel sounds. Tenderness to palpation of abdomen; most prominent in LLQ. No organomegaly. MSK: Normal range of motion appreciated. Skin: Not examined. Neurological: Alert and oriented Psychiatric: Thought process clear and organized. Affect appropriate. Genitourinary: Not examined. Lymphatic: Not examined. Results & Data ([facility]) Vital Signs (Past 12 Hours) Vital Signs Temp Pulse Resp BP Pulse Ox 06/17/19 07:44 37.0 C 77 16 142/83 H 96 Laboratory Results Hgb 9.8 ESR 87 CRP 13 Stool Culture No growth to date
[2019-06-17 15:44] LABS: Hematocrit (blood only) 30.3 % (42-52); Hemoglobin 9.7 g/dL (14.0-18.0)
--- NOTE | 2019-06-17 16:53 | Gastroenterology Progress Note ---
Date of Service June 17, 2019 Assessment & Plan (1) Ulcerative colitis: (2) Bloody diarrhea: slowly improving UC flare Recs: 1. continue steroids 2. panculture if febrile 3. daily ESR, CRP, CBC 4. if continues to improve then advance diet as tolerated starting tomorrow 5. if no improvement then will plan for colonoscopy with biopsies to rule out other causes/assess disease severity Admission and Anticipated Discharge Date Admission Date: June 15, 2019 Subjective continues to have abdominal pains and diarrhea, 4 episodes so far today. ESR and CRP improving slowly. Tolerating clear liquid diet. Labs reviewed. Review of Systems Constitutional: no fever and no chills Respiratory: no cough, no dyspnea and no dyspnea on exertion Cardiovascular: no chest pain and no dyspnea Gastrointestinal: as per Subjective / HPI Psychiatric: no depression and no anxiety Physical Exam Constitutional: WD/WN, vitals as above Respiratory: normal respiratory effort, lungs clear to auscultation Cardiovascular: RRR, no murmur, no edema Gastrointestinal (Abdomen): normal bowel sounds, soft, nontender, no hepatosplenomegaly Musculoskeletal: no lower extremity edema Psychiatric: A+Ox3, euthymic affect Results & Data Results & Data ([facility]) Vital Signs (Past 12 Hours) Vital Signs Temp Pulse Resp BP Pulse Ox 06/17/19 15:14 36.5 C 74 17 146/83 H 95 06/17/19 07:44 37.0 C 77 16 142/83 H 96 PG Care Time/CCT Total # of Minutes Spent Total Time Spent with Patient: Total time spent is greater than 50% in coordination of care (as documented) at patient's floor/unit and/or counseling patient: Coding Level of Care Code 88856 Subseq Hosp Care Lvl 3 Diagnoses Ulcerative colitis K51.919 Digestive disease complication type: unspecified complication Ulcerative colitis location: unspecified ulcerative colitis location Bloody diarrhea R19.7 (1) Ulcerative colitis Digestive disease complication type: unspecified complication Ulcerative colitis location: unspecified ulcerative colitis location Qualified Code(s): K51.919 - Ulcerative colitis, unspecified with unspecified complications
[2019-06-17] MEDS: ENOXAPARIN INJ 40 MG/0.4 ML SYR SQ SCH (22:11)
[2019-06-18] MEDS: NSS + 20MEQ KCL 20 MEQ/1,000 ML BAG IV SCH ×3 (00:06→18:27)
[2019-06-18] MEDS: MoRPHine SULFATE 2 MG/ML CARP IV PRN ×5 (04:32→20:43)
[2019-06-18] MEDS: OXYCODONE/ACETAMINOPHEN 5mg/325mg TAB PO PRN ×4 (06:04→22:12)
[2019-06-18] MEDS: methylPREDNISolone 20 MG in SYRINGE 0 ML IV SCH ×3 (06:04→22:06)
[2019-06-18 06:07] LABS: Hematocrit (blood only) 31.5 % (42-52); Hemoglobin 10.3 g/dL (14.0-18.0); Mean Corpuscular Hemoglobin 27.3 pg (25-34); Mean Corpuscular Hgb Conc 32.7 g/dL (32-36); Mean Corpuscular Volume 83.6 fL (80-100); Mean Platelet Volume 9.1 fL (7.4-10.4); Nucleated RBC # (auto) 0.03 K/uL (0-0); Nucleated RBC % (auto) 0.3 %; Platelet Count 558 K/uL (130-400); RDW Coefficient of Variation 13.9 % (11.5-14.5); RDW Standard Deviation 41.4 fL (36.4-46.3); Red Blood Count 3.77 M/uL (4.7-6.1); White Blood Count 11.64 K/uL (4.8-10.8)
[2019-06-18 06:39] LABS: Basophils # (auto) 0.03 K/uL (0-0.2); Basophils % (auto) 0.3 %; Dohle Bodies 1+; Eosinophils # (auto) 0.06 K/uL (0-0.5); Eosinophils % (auto) 0.5 %; Immature Granulocytes # (auto) 0.46 K/uL (0.00-0.02); Lymphocytes % (auto) 14.6 %; Monocytes # (auto) 1.55 K/uL (0.11-0.59); Monocytes % (auto) 13.3 %; Neutrophils # (auto) 7.84 K/uL (1.4-6.5); Neutrophils % (auto) 67.3 %; Toxic Granulation 3+
[2019-06-18] MEDS: FLUTICASONE/VILANTEROL 200/25MCG 14 PUFFS/INHALER INH SCH (08:28)
--- NOTE | 2019-06-18 14:10 | Gastroenterology Progress Note ---
Date of Service June 18, 2019 Assessment & Plan (1) Bloody diarrhea: (2) Abdominal pain: (3) Ulcerative colitis: moderate-severe flare, not responding well to steroid therapy Recs: 1.prep with golytely starting today at 6 pm, split prep 2.NPO post midnight except for prep 3.colonoscopy with biopsies tomorrow at 10 am to further evaluate, rule out any viral or other infectious cause 4.supportive care, pain control prn 5.continue steroids Admission and Anticipated Discharge Date Admission Date: June 15, 2019 Subjective patient noted to have severe abdominal pains today, continues to have bloody diarrhea. ESR and CRP noted to be worse. afebrile. remains on steroids for UC flare. Review of Systems Constitutional: no fever and no chills Respiratory: no cough, no dyspnea and no dyspnea on exertion Cardiovascular: no chest pain and no dyspnea Gastrointestinal: as per Subjective / HPI Psychiatric: no depression and no anxiety Physical Exam Constitutional: WD/WN, vitals as above Respiratory: normal respiratory effort, lungs clear to auscultation Cardiovascular: RRR, no murmur, no edema Gastrointestinal (Abdomen): normal bowel sounds, soft, nontender, no hepatosplenomegaly Musculoskeletal: no lower extremity edema Psychiatric: A+Ox3, euthymic affect Results & Data Results & Data ([facility]) Vital Signs (Past 12 Hours) Vital Signs Temp Pulse Resp BP Pulse Ox 06/18/19 07:16 36.8 C 84 16 144/89 H 95 PG Care Time/CCT Total # of Minutes Spent Total Time Spent with Patient: Total time spent is greater than 50% in coordination of care (as documented) at patient's floor/unit and/or counseling patient: Coding Level of Care Code 10695 Subseq Hosp Care Lvl 3 Diagnoses Bloody diarrhea R19.7 Abdominal pain R10.9 Abdominal location: unspecified location Ulcerative colitis K51.919 Digestive disease complication type: unspecified complication Ulcerative colitis location: unspecified ulcerative colitis location (1) Abdominal pain Abdominal location: unspecified location Qualified Code(s): R10.9 - Unspecified abdominal pain (2) Ulcerative colitis Digestive disease complication type: unspecified complication Ulcerative colitis location: unspecified ulcerative colitis location Qualified Code(s): K51.919 - Ulcerative colitis, unspecified with unspecified complications
--- NOTE | 2019-06-18 14:56 | Hospitalist Progress Note ---
Date of Service June 18, 2019 Assessment & Plan (1) Ulcerative colitis: Tyrell Farley is a 28 year young man with history of ulcerative colitis here for UC flare Acute exacerbation of Ulcerative colitis: - Possibly Secondary to having missed dose of Ramicade in April. - patient with worsening abdominal pain, and increased bloody bowel movements overnight - ESR >90 (increased from previous 87), CRP 13.2 (increased from previous 13.0), Hgb stable at 10.3 - GI consulted: recommended starting split prep with NPO at midnight except for prep, colonoscopy with biopsies in AM - continue supportive care with Zofran for nausea; Tylenol, Percocet, and morphine for pain control - continue NSS @ 120mls/hr with 20 mEq KCl Acute blood loss anemia secondary to GI bleed from UC: - H/H has been stable - continue to monitor Asthma - continue home Advair and PRN breathing treatments Diet: NPO at midnight for colonoscopy DVT prophylaxis: Lovenox 40 subcu daily Code: Full code Admission and Anticipated Discharge Date Admission Date: June 15, 2019 Supervising Physician Co-Signing Physician Notes Resident Physician Supervision Note: I independently interviewed and examined the patient and verified the mayers history and physical, reviewed labs and image studies, discussed the case with the resident Dr. Gallegos and agree with the findings and care plan. Subjective Patient had increased abdominal pain and discomfort over night, with increased bloody bowel movements. Has not improved throughout the day today, and feels like this pain and discomfort, with the bleeding has returned to the point that brought him into the hospital originally. Review of Systems Review of Systems: All systems reviewed & are unremarkable except as noted in Subjective Physical Exam Constitutional: WD/WN, vitals as above Eyes: PERRL, conjunctivae normal, anicteric sclerae Respiratory: normal respiratory effort, lungs clear to auscultation Cardiovascular: Rate/Rhythm: regular rate and regular rhythm Heart Sounds: normal S2; no gallop, no murmur and no cardiac rub Gastrointestinal (Abdomen): Inspection/Auscultation: abdomen not distended Percussion/Palpation: + abdomen tender (LLQ), + guarding and abdomen soft; no hepatosplenomegaly Results & Data ([facility]) Vital Signs (Past 12 Hours) Vital Signs Temp Pulse Resp BP Pulse Ox 06/18/19 07:16 36.8 C 84 16 144/89 H 95 Laboratory Results 06/18/19 06/18/19 06/18/19 Range/Units 05:37 05:37 05:37 WBC 11.64 H (4.8-10.8) K/uL RBC 3.77 L (4.7-6.1) M/uL Hgb 10.3 L (14.0-18.0) g/dL Hct 31.5 L (42-52) % MCV 83.6 (80-100) fL MCH 27.3 (25-34) pg MCHC 32.7 (32-36) g/dL RDW Std Deviation 41.4 (36.4-46.3) fL RDW Coeff of Marek 13.9 (11.5-14.5) % Plt Count 558 H (130-400) K/uL MPV 9.1 (7.4-10.4) fL Immature Gran % (Auto) 4.0 % Neut % (Auto) 67.3 % Lymph % (Auto) 14.6 % Alfalfa % (Auto) 13.3 % Eos % (Auto) 0.5 % Baso % (Auto) 0.3 % Immature Gran # (Auto) 0.46 H (0.00-0.02) K/uL Neut # (Auto) 7.84 H (1.4-6.5) K/uL Lymph # (Auto) 1.70 (1.2-3.4) K/uL Alfalfa # (Auto) 1.55 H (0.11-0.59) K/uL Eos # (Auto) 0.06 (0-0.5) K/uL Baso # (Auto) 0.03 (0-0.2) K/uL Absolute Nucleated RBC 0.03 H (0-0) K/uL Nucleated RBC % (auto) 0.3 % Toxic Granulation 3+ Dohle Bodies 1+ ESR > 90 H (0-14) mm/hr C-Reactive Protein 13.20 H (0-0.29) mg/dl 06/17/19 Range/Units 15:24 WBC (4.8-10.8) K/uL RBC (4.7-6.1) M/uL Hgb 9.7 L (14.0-18.0) g/dL Hct 30.3 L (42-52) % MCV (80-100) fL MCH (25-34) pg MCHC (32-36) g/dL RDW Std Deviation (36.4-46.3) fL RDW Coeff of Marek (11.5-14.5) % Plt Count (130-400) K/uL MPV (7.4-10.4) fL Immature Gran % (Auto) % Neut % (Auto) % Lymph % (Auto) % Alfalfa % (Auto) % Eos % (Auto) % Baso % (Auto) % Immature Gran # (Auto) (0.00-0.02) K/uL Neut # (Auto) (1.4-6.5) K/uL Lymph # (Auto) (1.2-3.4) K/uL Alfalfa # (Auto) (0.11-0.59) K/uL Eos # (Auto) (0-0.5) K/uL Baso # (Auto) (0-0.2) K/uL Absolute Nucleated RBC (0-0) K/uL Nucleated RBC % (auto) % Toxic Granulation Dohle Bodies ESR (0-14) mm/hr C-Reactive Protein (0-0.29) mg/dl Medications Administered Current Inpatient Medications Acetaminophen (Tylenol) 650 mg PO Q4H PRN PRN Reason: pain/fever Stop: 07/15/19 22:29 Albuterol (Ventolin Hfa) 2 puffs INH Q4H PRN PRN Reason: Shortness Of Breath Or Wheezing Stop: 07/15/19 22:34 Enoxaparin Sodium (Lovenox) 40 mg SQ Q24H GIFTY Stop: 07/15/19 22:29 Last Admin: 06/17/19 22:11 Dose: 40 mg Documented by: Fluticasone/Vilanterol (Breo Ellipta 200/25 Mcg Inh) 1 puffs INH DAILY GIFTY; Protocol Stop: 07/15/19 22:59 Last Admin: 06/18/19 08:28 Dose: 1 puffs Documented by: Potassium Chloride/Sodium Chloride (Normal Saline W/20 Meq Kcl) 20 meq in 1,000 mls @ 120 mls/hr IV .Q8H20M GIFTY Stop: 07/15/19 22:44 Last Admin: 06/18/19 08:26 Dose: 120 mls/hr Documented by: Methylprednisolone 20 mg/ (Syringe) 0.32 mls @ 1.5 mls/min IV Q8H GIFTY Stop: 07/15/19 22:59 Last Admin: 06/18/19 06:04 Dose: 1.5 mls/min Documented by: Morphine Sulfate (Morphine Sulfate) 2 mg IV Q2H PRN PRN Reason: Pain Stop: 06/29/19 22:29 Last Admin: 06/18/19 11:49 Dose: 2 mg Documented by: Ondansetron HCl (Zofran) 4 mg IV Q6H PRN PRN Reason: Nausea Stop: 07/15/19 22:29 Oxycodone/Acetaminophen (Percocet 5mg/325mg) 1 tab PO Q4H PRN PRN Reason: Pain Stop: 06/29/19 22:29 Last Admin: 06/18/19 10:25 Dose: 1 tab Documented by: Polyethylene Glycol/Electrolytes (Golytely) 8 dose PO 0600,1800 GIFTY Stop: 06/19/19 06:01 Resident Activity Tracking Resident Involvement: Resident Care Provided Care Provided: Adult [facility] Medicine (1) Ulcerative colitis Digestive disease complication type: unspecified complication Ulcerative colitis location: unspecified ulcerative colitis location Qualified Code(s): K51.919 - Ulcerative colitis, unspecified with unspecified complications
[2019-06-18] MEDS: LAVAGE SOLUTION 4000ML PO SCH (17:56)
[2019-06-18] MEDS: ONDANSETRON INJ 2 MG/ML 2 ML VIAL IV PRN (18:25)
[2019-06-18] MEDS: ENOXAPARIN INJ 40 MG/0.4 ML SYR SQ SCH (22:05)
[2019-06-19] MEDS: MoRPHine SULFATE 2 MG/ML CARP IV PRN ×8 (00:53→20:24)
[2019-06-19] MEDS: NSS + 20MEQ KCL 20 MEQ/1,000 ML BAG IV SCH ×2 (02:58→12:19)
[2019-06-19] MEDS: LAVAGE SOLUTION 4000ML PO SCH (05:45)
[2019-06-19] MEDS: methylPREDNISolone 20 MG in SYRINGE 0 ML IV SCH ×2 (06:01→15:46)
[2019-06-19] MEDS: ONDANSETRON INJ 2 MG/ML 2 ML VIAL IV PRN (06:29)
--- NOTE | 2019-06-19 07:12 | Anesthesiology Consultation ---
Date of Service June 19, 2019 Assessment & Plan (1) Encounter for pre-operative examination: Chart Review Chart Review: Acceptable Risk for Surgery History Surgery Operation Date: 06/19/19 10:00 Proposed Procedures p Colonoscopy - Reyes Costello MD Height/Weight Height: 5 ft 9 in Weight: 83.7 kg Allergies Allergy/AdvReac Type Severity Reaction Status Date / Time amoxicillin Allergy Severe HIVES, Verified 06/15/19 20:48 THROAT SWELLING Medications Home Medications Medication Instructions Recorded Confirmed Last Taken Remicade 1 dose IV DIRECTED 07/22/18 06/15/19 06/11/18 albuterol sulfate [ProAir HFA] 2 puff INHALATION Q4H PRN 07/22/18 06/15/19 07/16/18 fluticasone propion-salmeterol 2 puff INHALATION BID 06/09/19 06/15/19 Unknown [Wixela Inhub] acetaminophen-codeine 1 tab PO TID PRN 06/15/19 06/15/19 Unknown [Tylenol-Codeine #3] ondansetron 4 mg TRANSLINGUAL Q8H PRN 06/15/19 06/15/19 Unknown Active Medications Generic Name Dose Route Start Last Admin Trade Name Freq PRN Reason Stop Dose Admin Enoxaparin Sodium 40 mg 06/15/19 22:30 06/18/19 22:05 Lovenox SQ 07/15/19 22:29 40 mg Q24H GIFTY Administration Fluticasone/Vilanterol 1 puffs 06/15/19 23:00 06/18/19 08:28 Breo Ellipta 200/25 Mcg Inh INH 07/15/19 22:59 1 puffs DAILY GIFTY Administration Protocol Potassium Chloride/Sodium Chloride 20 meq in 1,000 mls @ 120 mls/hr 06/15/19 22:45 06/19/19 02:58 Normal Saline W/20 Meq Kcl IV 07/15/19 22:44 120 mls/hr .Q8H20M GIFTY Administration Methylprednisolone 20 mg/ 0.32 mls @ 1.5 mls/min 06/15/19 23:00 06/19/19 06:01 Syringe IV 07/15/19 22:59 1.5 mls/min Q8H GIFTY Administration Morphine Sulfate 2 mg 06/15/19 22:30 06/19/19 06:01 Morphine Sulfate IV 06/29/19 22:29 2 mg Q2H PRN Administration Pain Ondansetron HCl 4 mg 06/15/19 22:30 06/19/19 06:29 Zofran IV 07/15/19 22:29 4 mg Q6H PRN Administration Nausea Oxycodone/Acetaminophen 1 tab 06/15/19 22:30 06/18/19 22:12 Percocet 5mg/325mg PO 06/29/19 22:29 1 tab Q4H PRN Administration Pain Past Medical History Medical History Asthma inhalers daily/prn Ulcerative colitis Past Family History Family History Other No family history of adverse response to anesthesia Past Surgical History Surgical History History of colonoscopy History of tonsillectomy History of wisdom tooth extraction Social History Smoking Status: Current every day smoker tobacco type: cigarettes Smoking cigarettes per day: 6 a day Hx Alcohol Use: No Alcohol type: beer, wine and hard liquor alcohol intake frequency: other Hx Substance Use: No substance use type: does not use Physical Exam Vital Signs Last Vital Signs Temp 36.8 C 06/18/19 22:33 Pulse 104 H 06/18/19 22:33 Resp 18 06/18/19 22:33 BP 146/93 H 06/18/19 22:33 Pulse Ox 95 06/18/19 22:33 Testing Laboratory Results 06/18/19 05:37 06/15/19 19:00 Urine Color Yellow 06/15/19 20:44 Urine Appearance Clear (Clear) 06/15/19 20:44 Urine pH 7.5 (4.5-7.5) 06/15/19 20:44 Ur Specific [place] > 1.045 (1.000-1.030) H 06/15/19 20:44 Urine Protein Negative (Negative) 06/15/19 20:44 Urine Glucose (UA) Negative (Negative) 06/15/19 20:44 Urine Ketones Negative (Negative) 06/15/19 20:44 Urine Nitrite Negative (Negative) 06/15/19 20:44 Ur Leukocyte Esterase Negative (Negative) 06/15/19 20:44 06/15/19 20:44 Escherichia coli Shiga Toxins Test - Final Stool Stool Culture - Final No Salmonella isolated, No Shigella isolated, No Campylobacter jejuni isolated.
[2019-06-19] MEDS: FLUTICASONE/VILANTEROL 200/25MCG 14 PUFFS/INHALER INH SCH (07:56)
[2019-06-19 09:34] LABS: Hematocrit (blood only) 33.6 % (42-52); Mean Corpuscular Hemoglobin 27.3 pg (25-34); Mean Corpuscular Hgb Conc 32.7 g/dL (32-36); Mean Corpuscular Volume 83.4 fL (80-100); Mean Platelet Volume 9.1 fL (7.4-10.4); Nucleated RBC # (auto) 0.05 K/uL (0-0); Nucleated RBC % (auto) 0.4 %; Platelet Count 584 K/uL (130-400); RDW Coefficient of Variation 13.9 % (11.5-14.5); RDW Standard Deviation 41.4 fL (36.4-46.3); Red Blood Count 4.03 M/uL (4.7-6.1); White Blood Count 14.24 K/uL (4.8-10.8)
[2019-06-19] MEDS ORDERED: MIDAZOLAM HCL 1 MG/ML 2ML VIAL ONE (09:43)
--- NOTE | 2019-06-19 09:45 | History & Physical Bridge Note ---
Date of Service June 19, 2019 History & Physical Bridge Note I have examined the patient, reviewed the History & Physical and in the interval since the performance of the History & Physical I have noted the following changes of clinical significance: no changes noted Proceed with colonoscopy risks/benefits and procedure discussed with patient, who agrees to proceed
[2019-06-19 09:52] LABS: ALC (manual) 1.37 K/uL (1.2-3.4); ANC (manual) 11.88 K/uL (1.4-6.5); Lymphocytes # (manual) 1.37 K/uL (1.2-3.4); Lymphocytes % (manual) 9.6 %; Metamyelocytes # (manual) 0.13 K/uL (0-0); Metamyelocytes % (manual) 0.9 %; Monocytes # (manual) 0.87 K/uL (0.11-0.59); Monocytes % (manual) 6.1 %; Neutrophils # (manual) 11.88 K/uL (1.4-6.5); Neutrophils % (manual) 83.4 %; Toxic Granulation 1+; Toxic Vacuolation 1+
[2019-06-19] MEDS ORDERED: PROPOFOL IV EMULSION 10 MG/ML 20 ML VIAL IV ONE ×4 (09:59→10:52)
[2019-06-19] MEDS ORDERED: LIDOCAINE HCL 2% 2 ML VIAL/AMP(20MG/ML) INFIL ONE (09:59)
[2019-06-19] MEDS ORDERED: ONDANSETRON INJ 2 MG/ML 2 ML VIAL ONE (10:47)
--- NOTE | 2019-06-19 10:58 | Procedure Note ---
Procedure Note Date of Service June 19, 2019 GI brief post op procedure note: colonoscopy findings: stool aspirate sent for testing, biopsies taken for UC and to rule out CMV. SEVERE UC was noted throughout the enitre colon. Recs: 1. transfer to tertiary care center (preferably [facility]) for further care and possible colectomy 2. continue steroids 3.follow up biopsy and stool testing results 4. see full procedure note for details Reyes Costello MD Gastroenterology Coding
--- NOTE | 2019-06-19 11:14 | GI REPORT ---
Patient Name: Tyrell Farley Procedure Date: 06/19/2019 9:45 AM Date of : 1990 Admit Type: Inpatient Age: 28 Gender: Male Attending MD: Reyes Costello MD Procedure: Colonoscopy Providers: Reyes Costello MD Referring MD: Quynh Torres Indications: Abdominal pain, Hematochezia, Ulcerative colitis Medicines: Monitored Anesthesia Care Complications: No immediate complications. Estimated blood loss: None. Estimated Blood Loss: Estimated blood loss: none. Procedure: Pre-Anesthesia Assessment: - Prior Anticoagulants: The patient has taken no previous anticoagulant or antiplatelet agents. - ASA Grade Assessment: III - A patient with severe systemic disease. After I obtained informed consent, the scope was passed under direct vision. Throughout the procedure, the patient's blood pressure, pulse, and oxygen saturations were monitored continuously. The Colonoscope was introduced through the anus and advanced to the cecum, identified by appendiceal orifice and ileocecal valve. The colonoscopy was performed without difficulty. The patient tolerated the procedure well. The quality of the bowel preparation was poor. Findings: Inflammation was found in a continuous and circumferential pattern from the anus to the cecum. This was graded as Mendez Score 3 (severe, with spontaneous bleeding, ulcerations), and when compared to the previous examination, the findings are worsened. Biopsies were taken with a cold forceps for histology and to rule out CMV. Estimated blood loss: none. stool aspirate was sent for fecal calprotectin, cdiff, culture Impression: - Preparation of the colon was poor. - Severe (Mendez Score 3) pancolitis ulcerative colitis, worsened since the last examination. Biopsied. Recommendation: - Transfer patient to another hospital, preferably [facility] for further treatment and possible colectomy - NPO. - Await pathology results. -continue steroids -supportive care, pain control prn Reyes Costello MD 06/19/2019 11:14:37 AM This report has been signed electronically. Note Initiated On: 06/19/2019 9:45 AM Number of Addenda: 0 I attest to the content of the Intraoperative Record and orders documented therein, exceptions below {[id number]}
--- NOTE | 2019-06-19 12:09 | Anesthesiology Progress Note ---
Date of Service June 19, 2019 Anesthesia Post Procedure Vital Signs Vital Signs: Temp Pulse Resp BP BP Pulse Ox 06/19/19 11:25 36.4 C L 97 H 18 139/86 96 06/19/19 11:20 94 H 18 136/87 96 06/19/19 11:10 97 H 18 147/89 H 97 06/19/19 11:00 36.5 C 103 H 20 145/90 H 100 06/19/19 09:40 36.6 C 73 20 150/91 H 93 06/19/19 07:31 36.7 C 88 16 148/84 H 95 06/18/19 22:33 36.8 C 104 H 18 146/93 H 95 06/18/19 15:09 36.9 C 95 H 18 143/84 H 96 Pain Intensity Left Lower Abdomen: Pain Intensity: 8 Transfer of Care Handoff Completed per policy Notes Mental Status: alert / awake / arousable Patient Amnestic to Procedure: Yes Nausea / Vomiting: adequately controlled Pain: adequately controlled Airway Patency, RR, SpO2: stable & adequate BP & HR: stable & adequate Hydration State: stable & adequate Anesthetic Complications: no major complications apparent
--- NOTE | 2019-06-19 13:47 | Hospitalist Progress Note ---
Date of Service June 19, 2019 Assessment & Plan (1) Ulcerative colitis: Tyrell Farley is a 28 year young man with history of ulcerative colitis here for UC flare Acute exacerbation of Ulcerative colitis: - patient with worsening abdominal pain, and increased bloody bowel movements overnight - on 06/17 had ESR >90 (increased from previous 87), CRP 13.2 (increased from previous 13.0) - Hgb stable, increased to 11.0 today - colonoscopy 06/18: demonstrated continuous circumferential inflammation from anus to cecum - GI consulted: recommended transfer to Tertiary care following colonoscopy demonstrating severe UC - PSH: spoke with transfer center and colorectal surgeon (Dr. Cartagena) about patient's condition, patient is accepted for transfer; however, no beds currently available to accept - continue supportive care with Zofran for nausea; Tylenol, Percocet, and morphine for pain control - Continue IVF - D5NSS @ 120mls/hr with 20 mEq KCl Asthma - continue home Advair and PRN breathing treatments Diet: NPO DVT prophylaxis: Lovenox Code: Full code Admission and Anticipated Discharge Date Admission Date: June 15, 2019 Supervising Physician Co-Signing Physician Notes Resident Physician Supervision Note: I independently interviewed and examined the patient and verified the mayers h istory and physical, reviewed labs and image studies, discussed the case with the resident Dr. Gallegos and agree with the findings and care plan. Subjective Patient had increased pain, and increased bloody bowel movements overnight while doing the bowel prep for colonoscopy this AM. In conversations with patient and family following the colonoscopy, patient understands the severity of his illness and as transfer is needed at this time, would like to go to [facility] as this is was where his mother had her surgery. Review of Systems Review of Systems: All systems reviewed & are unremarkable except as noted in Subjective Physical Exam Constitutional: WD/WN, vitals as above Eyes: PERRL, conjunctivae normal, anicteric sclerae Respiratory: normal respiratory effort, lungs clear to auscultation Cardiovascular: Rate/Rhythm: regular rate and regular rhythm Heart Sounds: normal S2; no gallop, no murmur and no cardiac rub Gastrointestinal (Abdomen): Inspection/Auscultation: abdomen not distended Percussion/Palpation: + abdomen tender (LLQ), + guarding and abdomen soft; no hepatosplenomegaly Results & Data ([facility]) Vital Signs (Past 12 Hours) Vital Signs Temp Pulse Resp BP BP Pulse Ox 06/19/19 11:25 36.4 C L 97 H 18 139/86 96 06/19/19 11:20 94 H 18 136/87 96 06/19/19 11:10 97 H 18 147/89 H 97 06/19/19 11:00 36.5 C 103 H 20 145/90 H 100 06/19/19 09:40 36.6 C 73 20 150/91 H 93 06/19/19 07:31 36.7 C 88 16 148/84 H 95 Laboratory Results 06/19/19 06/19/19 06/19/19 Range/Units Unknown 10:50 10:45 WBC (4.8-10.8) K/uL RBC (4.7-6.1) M/uL Hgb (14.0-18.0) g/dL Hct (42-52) % MCV (80-100) fL MCH (25-34) pg MCHC (32-36) g/dL RDW Std Deviation (36.4-46.3) fL RDW Coeff of Marek (11.5-14.5) % Plt Count (130-400) K/uL MPV (7.4-10.4) fL Absolute Nucleated RBC (0-0) K/uL Nucleated RBC % (auto) % Neutrophils % (Manual) % Lymphocytes % (Manual) % Prolymphocyte % % Monocytes % (Manual) % Metamyelocytes % (Man) % Plasma Cell % (Manual) % Neutrophils # (Manual) (1.4-6.5) K/uL Total Absolute Neuts (1.4-6.5) K/uL Lymphocytes # (Manual) (1.2-3.4) K/uL Total Abs Lymphocytes (1.2-3.4) K/uL Monocytes # (Manual) (0.11-0.59) K/uL Metamyelocytes # (Man) (0-0) K/uL Toxic Granulation Toxic Vacuolation Stool Comments CMV Specimen Source Cancelled CMV DNA Qual PCR Pending Pending CMV Qnt PCR IU/mL Cancelled CMV Qnt PCR log IU/mL Cancelled Ref Lab Test Source Pending Pending 06/19/19 06/15/19 Range/Units 09:25 20:44 WBC 14.24 H (4.8-10.8) K/uL RBC 4.03 L (4.7-6.1) M/uL Hgb 11.0 L (14.0-18.0) g/dL Hct 33.6 L (42-52) % MCV 83.4 (80-100) fL MCH 27.3 (25-34) pg MCHC 32.7 (32-36) g/dL RDW Std Deviation 41.4 (36.4-46.3) fL RDW Coeff of Marek 13.9 (11.5-14.5) % Plt Count 584 H (130-400) K/uL MPV 9.1 (7.4-10.4) fL Absolute Nucleated RBC 0.05 H (0-0) K/uL Nucleated RBC % (auto) 0.4 % Neutrophils % (Manual) 83.4 % Lymphocytes % (Manual) 9.6 % Prolymphocyte % 0.0 % Monocytes % (Manual) 6.1 % Metamyelocytes % (Man) 0.9 % Plasma Cell % (Manual) 0.0 % Neutrophils # (Manual) 11.88 H (1.4-6.5) K/uL Total Absolute Neuts 11.88 H (1.4-6.5) K/uL Lymphocytes # (Manual) 1.37 (1.2-3.4) K/uL Total Abs Lymphocytes 1.37 (1.2-3.4) K/uL Monocytes # (Manual) 0.87 H (0.11-0.59) K/uL Metamyelocytes # (Man) 0.13 H (0-0) K/uL Toxic Granulation 1+ Toxic Vacuolation 1+ Stool Comments Pending CMV Specimen Source CMV DNA Qual PCR CMV Qnt PCR IU/mL CMV Qnt PCR log IU/mL Ref Lab Test Source Medications Administered Current Inpatient Medications Acetaminophen (Tylenol) 650 mg PO Q4H PRN PRN Reason: pain/fever Stop: 07/15/19 22:29 Albuterol (Ventolin Hfa) 2 puffs INH Q4H PRN PRN Reason: Shortness Of Breath Or Wheezing Stop: 07/15/19 22:34 Enoxaparin Sodium (Lovenox) 40 mg SQ Q24H GIFTY Stop: 07/15/19 22:29 Last Admin: 06/18/19 22:05 Dose: 40 mg Documented by: Fluticasone/Vilanterol (Breo Ellipta 200/25 Mcg Inh) 1 puffs INH DAILY [facility]; Protocol Stop: 07/15/19 22:59 Last Admin: 06/19/19 07:56 Dose: 1 puffs Documented by: Potassium Chloride/Sodium Chloride (Normal Saline W/20 Meq Kcl) 20 meq in 1,000 mls @ 120 mls/hr IV .Q8H20M GIFTY Stop: 07/15/19 22:44 Last Admin: 06/19/19 12:19 Dose: 120 mls/hr Documented by: Methylprednisolone 20 mg/ (Syringe) 0.32 mls @ 1.5 mls/min IV Q8H GIFTY Stop: 07/15/19 22:59 Last Admin: 06/19/19 06:01 Dose: 1.5 mls/min Documented by: Morphine Sulfate (Morphine Sulfate) 2 mg IV Q2H PRN PRN Reason: Pain Stop: 06/29/19 22:29 Last Admin: 06/19/19 12:27 Dose: 2 mg Documented by: Ondansetron HCl (Zofran) 4 mg IV Q6H PRN PRN Reason: Nausea Stop: 07/15/19 22:29 Last Admin: 06/19/19 06:29 Dose: 4 mg Documented by: Oxycodone/Acetaminophen (Percocet 5mg/325mg) 1 tab PO Q4H PRN PRN Reason: Pain Stop: 06/29/19 22:29 Last Admin: 06/18/19 22:12 Dose: 1 tab Documented by: Resident Activity Tracking Resident Involvement: Resident Care Provided Care Provided: Adult Hospital Medicine (1) Ulcerative colitis Digestive disease complication type: unspecified complication Ulcerative colitis location: unspecified ulcerative colitis location Qualified Code(s): K51.919 - Ulcerative colitis, unspecified with unspecified complications
[2019-06-19] MEDS ORDERED: D5NSS + 20MEQ KCL 20 MEQ/1,000 ML BAG IV SCH (15:00)
--- NOTE | 2019-06-19 18:12 | Discharge Summary ---
Date of Service June 19, 2019 Admission HPI Per Admitting Provider Mr. Tyrell Farley is a 28-year-old young man with a past medical history significant of asthma which is well controlled on Advair twice daily and ulcerative colitis first diagnosed in 2016. Patient has been on Remicade therapy started in December 2016 which seems to control his symptoms very well he missed many doses over the summer secondary to arguing with his insurance company and he missed another dose in April after just forgetting to get it done patient has noticed blood in his stool for about the last month, in that time he is also started to develop abdominal pain he describes abdominal pain as left lower quadrant radiating up from there it has gotten progressively worse he describes his stool as having radha blood in it and be extremely loose he has not had a solid bowel movement in some time and the pain in his abdomen is getting getting progressively worse currently he says his pain is as bad as 10 out of 10 before he was on pain medication in the ED he says without a doubt the worst pain he is ever experienced. Patient has had several dry heaving episodes but does not feel nauseous he says is from the pain also of note he has had a greatly decreased appetite for last month getting worse he is also drinking less although of late mom has been forcing him to drink more buying propels gantto's fruit juices water whenever he will drink. He declines any other symptoms, no chest pain no shortness of breath no palpitations no fever no chills no recent sick contacts. Patient presents emergency department a week ago for similar symptoms where he was treated with pain medication and Zofran and discharged without steroids to follow-up with GI he has been suffering at home and decided to come back in today. In emergency department patient was given IV fluid as well as Dilaudid for pain, pain is currently better controlled though he still rates it as a 7. Patient claims there is still blood in stool and he is will provide a sample of that. 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 Patient does smoke cigarettes about a pack a day When discussing CODE STATUS with patient he curiously decided that he would prefer to be DNR/DNI his mother got upset with him and he decided to be full code. Principal Diagnosis Severe Ulcerative Colitis Discharge Exam Constitutional WD/WN, vitals as above Eyes PERRL, conjunctivae normal, anicteric sclerae Respiratory normal respiratory effort, lungs clear to auscultation Cardiovascular Rate/Rhythm: regular rate and regular rhythm Heart Sounds: normal S2; no gallop, no murmur and no cardiac rub Gastrointestinal (Abdomen) Inspection/Auscultation: abdomen not distended Percussion/Palpation: + abdomen tender (LLQ), + guarding and abdomen soft; no hepatosplenomegaly Discharge Data Allergies Allergy/AdvReac Type Severity Reaction Status Date / Time amoxicillin Allergy Severe HIVES, Verified 06/15/19 20:48 THROAT SWELLING Consultations 06/15/19 20:32 ED Decision to Admit Stat 06/15/19 20:54 Consult Gastroenterology Stat 06/19/19 12:45 Burn CD for patient Stat 06/19/19 13:02 Burn CD for patient Routine Procedures Performed Operation Date: 06/19/19 10:00 Actual Procedures p Colonoscopy(Not Applicable) - Reyes Costello MD Ordered Studies 06/15/19 18:34 CT abd pelvis IV con only Stat Hospital Course (1) Ulcerative colitis: Tyrell Farley is a 28 year young man with history of ulcerative colitis presented with abdominal pain and bloody bowel movements for the last month; previously had been on Remicade therapy started in December 2016 which seemed to control his symptoms very well,, prior to missing many doses over the summer, and missing another dose in April. Acute exacerbation of Ulcerative colitis: - Treated with IV steroid, IVF, clear diet. - patient with worsening abdominal pain, and increased bloody bowel movements overnight - on 06/17 had ESR >90 (increased from previous 87), CRP 13.2 (increased from previous 13.0) - Hgb stable, increased to 11.0 today - colonoscopy 06/18: demonstrated continuous circumferential inflammation from anus to cecum - GI consulted: recommended transfer to Tertiary care following colonscopy demonstrating severe UC - spoke with accepting physician (Dr. Cartagena) at [facility] - [facility]; prior to transfer Asthma - continue home Advair and PRN breathing treatments Code Status: Full Total Time Total Time Spent Total Time Spent (In Minutes): 30 Discharge Plan Discharge Items Patient Disposition: Transfer Acute Care Hospital Reason For Visit: ULCERATIVE COLITIS FLARE Discharge Diagnosis: Severe Ulcerative Colitis Activity: Per Instructions section Non-emergency contact: Primary Care Provider Call non-emergency contact if: you have any medication questions, your symptoms worsen and your pain is unusual for you Follow-up/Referrals: PCP,NO [Primary Care Provider] - Diet: Nothing by Mouth Addtl Attending Provider Instructions: You were admitted for abdominal pain with increased bloody bowel movements. During this evaluation, you had a colonoscopy completed that demonstrated a worsening of your ulcerative colitis necessitating that you be transferred to another hospital. You are being transferred to [facility] in [place], [place]. Pending Studies at Discharge: Yes (CMV pending) Stand-Alone Forms: My [facility] Skilled Items Patient informed of condition?: Yes DNR: No Discharge Level of Care: Other Communicable Disease: No Discharge Prognosis: Stable Lines: None Urinary Catheter: No Medications and DC Order Prescriptions: Continued Remicade 100 mg Recon Soln 1 dose IV DIRECTED RF: 0 albuterol sulfate [ProAir HFA] 90 mcg/actuation Hfa Aerosol Inhaler 2 puff INHALATION Q4H PRN (Reason: Shortness Of Breath Or Wheezing) RF: 0 fluticasone propion-salmeterol [Wixela Inhub] 100-50 mcg/dose blister with device 2 puff INHALATION BID RF: 0 acetaminophen-codeine [Tylenol-Codeine #3] 300-30 mg tablet 1 tab PO TID PRN (Reason: Pain) RF: 0 ondansetron 4 mg tablet,disintegrating 4 mg translingual Q8H PRN (Reason: Nausea And Vomiting) RF: 0 Discharge Orders: Discharge Order (Routine); Ordered 06/19/19 Ordered By: Ramon Gallegos Admission Data Admit Date/Time: 06/15/19 21:19 Attending Provider: Quynh Torres Admit Provider: Graham Topete Primary Care Provider: PCP,NO Other Providers: Katy Villa Qasim Other Interventions: Discharge Summary Assessment (RN) Last Done: 06/19/19 20:53 DC Date/Time DO NOT enter until pt leaves facility: 06/19/19 20:57 Supervising Physician Co-Signing Physician Notes Resident Physician Supervision Note: I independently interviewed and examined the patient and verified the mayers history and physical, reviewed labs and image studies, discussed the case with the resident Dr. Gallegos and agree with the findings and care plan. Resident Activity Tracking Resident Involvement: Resident Care Provided Care Provided: Adult [facility] Medicine
== END 2019-06-19 20:57 | disposition short-term general hospital (02) | DRG 386 ==
LOC: ED 18:11 → 4W 21:19 → SUATTDRO 21:19 → 4W 22:18

== ENCOUNTER 2022-07-25 16:11 | Observation (INO) ==
[2022-07-25] MEDS ORDERED: SODIUM CHLORIDE 0.9% 1000ML 1,000 ML IV STA (17:14)
--- NOTE | 2022-07-25 17:35 | Emergency Department Note ---
Impression & Plan Abdominal pain, epigastric, Acute pancreatitis ED Provider Note HISTORY OF PRESENT ILLNESS: Patient is a 32-year-old male presenting with epigastric abdominal pain. Reports that the pain has been occurring for the last 2 weeks. Reports pain awakens him from sleep at nighttime. He denies any nausea or diarrhea. Denies any vomiting. Describes the pain as constant and "painful." He denies any chest pain or shortness of breath. Denies any excessive NSAID use or alcohol use. Denies any recent fevers. Denies any cough or shortness of breath. Denies any DVT or PE history. ROS: as above PHYSICAL EXAM: Constitutional: Patient appears in no acute distress. HENT: Head: Normocephalic and atraumatic. Eyes: EOMI, PERRL Mouth/Throat: Mucous membranes moist. Neck: Trachea midline. Neck supple. Cardiovascular: RRR, No murmurs, rubs or gallops. Intact distal pulses. Pulmonary/Chest: No respiratory distress. Breath sounds clear and equal bilaterally. No wheezes or rales. Abdominal: BS +. Abdomen soft, no rebound or guarding. Epigastric tenderness to palpation Musculoskeletal: No edema, tenderness or deformity noted. Skin: Warm and dry. No rash, erythema, pallor or cyanosis Psychiatric: Appropriate mood and affect for situation. Neurological: Alert and keenly responsive. CN II-XII grossly intact, moving all extremities equally and fully. MDM: - Vitals signs showed borderline tachycardia. - History obtained via patient. Patient presents with epigastric abdominal pain. Patient reports symptoms of been ongoing for the last 2 weeks. Describes constant painful sensation in the epigastric region. Pain awakens him at nighttime. He denies any excessive alcohol use or excessive NSAID use. Denies any recent fevers. Denies any chest pain or shortness of breath - Chronic conditions affecting care: Ulcerative colitis - Differential diagnoses include, but are not limited to: ACS; pancreatitis; gastric ulcer; gastritis; cholecystitis - Order placed for continuous cardiac monitoring. - External medical records reviewed. - Laboratory workup interpreted by myself showed normal WBC; stable electrolytes; normal liver function; normal lipase; normal troponin - CT abdomen/pelvis with IV contrast showed enlarged pancreatic head with mild adjacent fat stranding concerning for acute pancreatitis. - CXR negative for pneumonia, per my interpretation. - Patient given 1L NS and 40 mg IV protonix in ER. He continues to complain of epigastric pain on reassessment. 50 mcg IV fentanyl ordered. - Discussion was had with social science analyst about patient's case and need for admission. - Hospitalist, Dr. Villa, consulted for admission. - Patient admitted to [facility] for further evaluation and management. ASSESSMENT AND PLAN: Diagnosis: epigastric abdominal pain; pancreatitis Plan: admit Past Med/Surg History Medical History (Updated 07/25/22 @ 21:13 by Elizabet Mendez MD) Asthma inhalers daily/prn Ulcerative colitis Surgical History History of colonoscopy History of tonsillectomy History of wisdom tooth extraction Family History Other No family history of adverse response to anesthesia Social History Smoking Status: Current every day smoker Tobacco Type: E-cigarettes / Vaping Cigarettes Per Day: 6 a day; Second Hand Exposure: No; Hx Alcohol Use: No Hx Substance Use: No Preferred Language: Micronesian Communication Ability: Effective 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 Beliefs That Will Affect Care: None Current Living Situation: Parent and Family Current Living Situation Comment: Lives with parents Feels Safe at Home: Yes Assistive Devices: None Allergies Allergies Allergy/AdvReac Type Severity Reaction Status Date / Time amoxicillin Allergy Severe HIVES, Verified 07/25/22 18:55 THROAT SWELLING Home Meds Home Medications Medication Instructions Recorded Confirmed albuterol sulfate 90 mcg/actuation 2 puff inhalation Q4H PRN 07/22/18 07/25/22 aerosol inhaler (ProAir HFA) Shortness Of Breath Or Wheezing acetaminophen 325 mg tablet 650 mg PO QID PRN Pain 10/06/19 07/25/22 (Tylenol) fluticasone 100 mcg-salmeterol 50 1 inh inhalation BID 10/06/19 07/25/22 mcg/dose blistr powdr for inhalation (Advair Diskus) diphenoxylate-atropine 2.5 1 tab PO QID PRN Diarrhea 07/25/22 07/25/22 mg-0.025 mg tablet paroxetine HCl 20 mg tablet 20 mg PO DAILY 04/21/23 04/21/23 Results & Data (ED) Vital Signs Vital Signs - 24 hr 07/25/22 16:14 07/25/22 16:32 07/25/22 16:33 Temperature 36.7 C Temperature Source Temporal Artery Scan Pulse Rate 101 H Pulse Rate [Right Finger] 94 H Pulse Rate from SpO2 Sensor Respiratory Rate 18 20 Respiratory Effort / Characteristics Non-Labored Spontaneous Non-Labored Respiratory Depth Normal Normal Respiratory Pattern Regular Blood Pressure 143/88 H Blood Pressure [Right Arm] 139/91 Blood Pressure Mean 106 Blood Pressure Mean [Right Arm] 107 Blood Pressure Position Sitting Pulse Oximetry 98 97 97 Oxygen Delivery Method Room Air Room Air Room Air Sepsis Recent Fever Within 48 Hours No Sepsis New/Unexplained Change in Mental Status No Sepsis Action Taken by Nursing No Action Required 07/25/22 16:31 07/25/22 17:37 07/25/22 18:54 Temperature Temperature Source Pulse Rate 98 H Pulse Rate [Right Finger] 91 H 80 Pulse Rate from SpO2 Sensor Respiratory Rate 13 20 Respiratory Effort / Characteristics Non-Labored Spontaneous Non-Labored Respiratory Depth Normal Normal Respiratory Pattern Blood Pressure Blood Pressure [Right Arm] 122/92 149/83 H Blood Pressure Mean Blood Pressure Mean [Right Arm] 102 105 Blood Pressure Position Pulse Oximetry 97 98 Oxygen Delivery Method Room Air Room Air Sepsis Recent Fever Within 48 Hours Sepsis New/Unexplained Change in Mental Status Sepsis Action Taken by Nursing 07/25/22 19:30 07/25/22 20:00 07/25/22 20:56 Temperature Temperature Source Pulse Rate Pulse Rate [Right Finger] Pulse Rate from SpO2 Sensor 73 70 76 Respiratory Rate Respiratory Effort / Characteristics Respiratory Depth Respiratory Pattern Blood Pressure 159/88 H Blood Pressure [Right Arm] Blood Pressure Mean 111 Blood Pressure Mean [Right Arm] Blood Pressure Position Pulse Oximetry 97 97 99 Oxygen Delivery Method Sepsis Recent Fever Within 48 Hours Sepsis New/Unexplained Change in Mental Status Sepsis Action Taken by Nursing 07/25/22 21:00 Temperature Temperature Source Pulse Rate Pulse Rate [Right Finger] Pulse Rate from SpO2 Sensor 59 L Respiratory Rate Respiratory Effort / Characteristics Respiratory Depth Respiratory Pattern Blood Pressure Blood Pressure [Right Arm] Blood Pressure Mean Blood Pressure Mean [Right Arm] Blood Pressure Position Pulse Oximetry 97 Oxygen Delivery Method Sepsis Recent Fever Within 48 Hours Sepsis New/Unexplained Change in Mental Status Sepsis Action Taken by Nursing Laboratory Data 07/25/22 16:29 07/25/22 16:29 Lab Results 07/25/22 07/25/22 Range/Units 16:29 16:29 WBC 8.37 (4.8-10.8) K/ul RBC 5.00 (4.70-6.10) M/uL Hgb 13.9 L (14.0-18.0) g/dl Hct 41.5 L (42.0-52.0) % MCV 83.0 (80.0-100.0) fL MCH 27.8 (25.0-34.0) pg MCHC 33.5 (32.0-36.0) g/dL RDW Std Deviation 40.8 (36.4-46.3) fL RDW Coeff of Marek 13.6 (11.5-14.5) % Plt Count 214 (130-400) K/uL MPV 11.7 (9.4-12.4) fL Immature Gran % (Auto) 0.2 % Neut % (Auto) 66.9 % Lymph % (Auto) 22.3 % [place] % (Auto) 6.7 % Eos % (Auto) 3.5 % Baso % (Auto) 0.4 % Neut # (Auto) 5.60 (1.40-6.50) K/uL Lymph # (Auto) 1.87 (1.2-3.4) K/uL [place] # (Auto) 0.56 (0.11-0.59) K/uL Eos # (Auto) 0.29 (0-0.50) K/uL Baso # (Auto) 0.03 (0-0.2) K/uL Immature Gran # (Auto) 0.02 (0.01-0.20) K/uL Sodium 139 (136-145) mmol/L Potassium 4.1 (3.5-5.1) mmol/L Chloride 105 (98-107) mmol/L Carbon Dioxide 27 (21-32) mmol/L Anion Gap 7 (3-11) BUN 18 (6-23) mg/dl Creatinine 1.37 (0.6-1.4) mg/dl Est Cr Clr Drug Dosing 93.9 ml/min Est GFR ( Amer) 78.5 ml/min Est GFR (Non-Af Amer) 67.8 ml/min BUN/Creatinine Ratio 13.1 (10-20) Glucose 85 (70-99(Fasting)) mg/dl Calcium 9.4 (8.6-10.3) mg/dl Total Bilirubin 0.2 (0.2-1.0) mg/dl AST 18 (13-39) U/L ALT 19 (7-52) U/L Alkaline Phosphatase 101 (34-104) U/L Troponin I High Sens 4.8 (0-20) pg/ml Total Protein 7.3 (6.0-8.3) gm/dl Albumin 4.2 (3.4-5.0) gm/dl Globulin 3.1 (2.5-4.0) gm/dl Albumin/Globulin Ratio 1.4 (0.9-2) Lipase 28 (11-82) U/L Administered Medications Discontinued Medications Fentanyl Citrate (Fentanyl Citrate Pf 100 Mcg/2 Ml Vial) 50 mcg IV NOW ONE Stop: 07/25/22 20:58 Last Admin: 07/25/22 21:10 Dose: 50 mcg Documented By: JASON Sodium Chloride (Nss 1000ml) 1,000 mls @ 999 mls/hr IV .Q1H1M STA Stop: 07/25/22 18:14 Last Infusion: 07/25/22 19:00 Dose: 0 mls/hr Documented By: Admin: 07/25/22 17:36 Dose: 999 mls/hr Documented By: MINERVA Pantoprazole Sodium 40 mg/ (Syringe) 10 mls @ 5 mls/min IV NOW ONE Stop: 07/25/22 19:41 Last Admin: 07/25/22 20:09 Dose: 5 mls/min Documented By: JASON Imaging Data Radiologist's Impression: Chest X-Ray 07/25/22 17:14 SINGLE VIEW CHEST CLINICAL HISTORY: Atypical chest pain. FINDINGS: An AP, portable, upright chest radiograph is obtained. No prior studies are available for comparison at the time of dictation. The cardiomediastinal silhouette is unremarkable. The lungs and pleural spaces are clear. No pneumothorax is seen. The bony thorax is grossly intact. IMPRESSION: No active disease in the chest. ACT 112: Negative or not required by law. Electronically signed by: Conor Oh M.D. 07/25/2022 6:14 PM Abdomen/Pelvis CT 07/25/22 17:57 Exam(s): CT ABDOMEN + PELVIS Without Contrast EXAM: CT Abdomen and Pelvis Without Intravenous Contrast CLINICAL HISTORY: Reason for exam: epigastric abdominal pain. TECHNIQUE: Axial computed tomography images of the abdomen and pelvis without intravenous contrast. CTDI is 19.91 mGy and DLP is 1027.64 mGy-cm. Automated exposure control was utilized for the study. A dose lowering technique was utilized adhering to the principles of ALARA. COMPARISON: CT abdomen pelvis 06/15/2019. FINDINGS: Lung bases: Unremarkable. No mass. No consolidation. ABDOMEN: Liver: Unremarkable. Gallbladder and bile ducts: Unremarkable. No calcified stones. No ductal dilation. Pancreas: Relatively enlarged pancreatic head to the remainder of the pancreas with mild adjacent fat stranding. Spleen: Unremarkable. No splenomegaly. Adrenals: Unremarkable. No mass. Kidneys and ureters: Unremarkable. No obstructing stones. No hydronephrosis. Stomach and bowel: Postsurgical change related to prior colectomy. No obstruction. PELVIS: Appendix: See above. Bladder: Unremarkable. No stones. Reproductive: Unremarkable as visualized. ABDOMEN and PELVIS: Intraperitoneal space: Unremarkable. No free air. No significant fluid collection. Bones/joints: Mild degenerative change in lumbar spine. No acute fracture. No dislocation. Soft tissues: Unremarkable. Vasculature: Unremarkable. No abdominal aortic aneurysm. Lymph nodes: Unremarkable. No enlarged lymph nodes. IMPRESSION: Relatively enlarged pancreatic head to the remainder of the pancreas with mild adjacent fat stranding. This could potentially represent acute pancreatitis in the appropriate clinical scenario. Electronically signed by: Bladimir Sutton MD 07/25/22 20:23 PM Discharge Plan Visit Data Chief Complaint: Chest Pain Stated Complaint: CHEST PAIN, ED Provider: Elizabet Mendez Discharge Problem: Abdominal pain, epigastric, Acute pancreatitis Forms Stand Alone Forms: [facility] [place] [id number] Prescriptions Prescriptions: No Action albuterol sulfate [ProAir HFA] 90 mcg/actuation Hfa Aerosol Inhaler 2 puff INHALATION Q4H PRN (Reason: Shortness Of Breath Or Wheezing) acetaminophen [Tylenol] 325 mg Tablet 650 mg PO QID PRN (Reason: Pain) fluticasone propion-salmeterol [Advair Diskus] 100-50 mcg/dose Blister With Device 1 inh INHALATION BID diphenoxylate-atropine 2.5-0.025 mg tablet 1 tab PO QID PRN (Reason: Diarrhea) paroxetine HCl 20 mg tablet 20 mg PO DAILY Referrals Referrals: PCP,NO [Physician] -
[2022-07-25 17:37] LABS: Basophils # (auto) 0.03 K/uL (0-0.2); Basophils % (auto) 0.4 %; Eosinophils # (auto) 0.29 K/uL (0-0.50); Eosinophils % (auto) 3.5 %; Hematocrit (blood only) 41.5 % (42.0-52.0); Hemoglobin 13.9 g/dl (14.0-18.0); Immature Granulocytes # (auto) 0.02 K/uL (0.01-0.20); Immature Granulocytes % (auto) 0.2 %; Lymphocytes # (auto) 1.87 K/uL (1.2-3.4); Lymphocytes % (auto) 22.3 %; Mean Corpuscular Hemoglobin 27.8 pg (25.0-34.0); Mean Corpuscular Hgb Conc 33.5 g/dL (32.0-36.0); Mean Platelet Volume 11.7 fL (9.4-12.4); Monocytes # (auto) 0.56 K/uL (0.11-0.59); Monocytes % (auto) 6.7 %; Neutrophils % (auto) 66.9 %; Platelet Count 214 K/uL (130-400); RDW Coefficient of Variation 13.6 % (11.5-14.5); RDW Standard Deviation 40.8 fL (36.4-46.3); White Blood Count 8.37 K/ul (4.8-10.8)
[2022-07-25 17:52] LABS: Albumin Globulin Ratio 1.4 (0.9-2); Albumin Level 4.2 gm/dl (3.4-5.0); BUN Creatinine Ratio 13.1 (10-20); Bilirubin,Total 0.2 mg/dl (0.2-1.0); Calcium 9.4 mg/dl (8.6-10.3); Creatinine Clr Calc Pharmacy 93.9 ml/min; Est GFR (African American) 78.5 ml/min; Est GFR (Non-African American) 67.8 ml/min; Globulin 3.1 gm/dl (2.5-4.0); Potassium 4.1 mmol/L (3.5-5.1); Total Protein 7.3 gm/dl (6.0-8.3)
[2022-07-25 17:58] LABS: Troponin I High Sensitivity 4.8 pg/ml (0-20)
--- NOTE | 2022-07-25 18:15 | XRay Report ---
SINGLE VIEW CHEST CLINICAL HISTORY: Atypical chest pain. FINDINGS: An AP, portable, upright chest radiograph is obtained. No prior studies are available for c omparison at the time of dictation. The cardiomediastinal silhouette is unremarkable. The lungs and p leural spaces are clear. No pneumothorax is seen. The bony thorax is grossly intact. IMPRESSION: No active disease in the chest. ACT 112: Negative or not required by law. Electronically signed by: Conor Oh M.D. 07/25/2022 6:14 PM
[2022-07-25] MEDS ORDERED: PANTOprazole 40 MG in SYRINGE 0 ML IV ONE (19:40)
--- NOTE | 2022-07-25 20:24 | CT Scan Report ---
Exam(s): CT ABDOMEN + PELVIS Without Contrast EXAM: CT Abdomen and Pelvis Without Intravenous Contrast CLINICAL HISTORY: Reason for exam: epigastric abdominal pain. TECHNIQUE: Axial computed tomography images of the abdomen and pelvis without intravenous contrast. CTDI is 19.91 mGy and DLP is 1027.64 mGy-cm. Automated exposure control was utilized for the study. A dose lowering technique was utilized adhering to the principles of ALARA. COMPARISON: CT abdomen pelvis 06/15/2019. FINDINGS: Lung bases: Unremarkable. No mass. No consolidation. ABDOMEN: Liver: Unremarkable. Gallbladder and bile ducts: Unremarkable. No calcified stones. No ductal dilation. Pancreas: Relatively enlarged pancreatic head to the remainder of the pancreas with mild adjacent fat stranding. Spleen: Unremarkable. No splenomegaly. Adrenals: Unremarkable. No mass. Kidneys and ureters: Unremarkable. No obstructing stones. No hydronephrosis. Stomach and bowel: Postsurgical change related to prior colectomy. No obstruction. PELVIS: Appendix: See above. Bladder: Unremarkable. No stones. Reproductive: Unremarkable as visualized. ABDOMEN and PELVIS: Intraperitoneal space: Unremarkable. No free air. No significant fluid collection. Bones/joints: Mild degenerative change in lumbar spine. No acute fracture. No dislocation. Soft tissues: Unremarkable. Vasculature: Unremarkable. No abdominal aortic aneurysm. Lymph nodes: Unremarkable. No enlarged lymph nodes. IMPRESSION: Relatively enlarged pancreatic head to the remainder of the pancreas with mild adjacent fat stranding. This could potentially represent acute pancreatitis in the appropriate clinical scenario. Electronically signed by: Bladimir Sutton MD 07/25/22 20:23 PM
[2022-07-25] MEDS ORDERED: fentaNYL citrate PF 100 MCG/2 ML VIAL IV ONE (20:57)
--- NOTE | 2022-07-25 21:15 | History & Physical Report ---
Date of Service July 25, 2022 Assessment & Plan (1) Abdominal pain, epigastric: Plan: 32yo male with history of Ulcerative Colitis s/p colectomy, well controlled asthma presenting with 2 weeks of epigastric discomfort. Patient is afebrile, HD stable, non-toxic in appearance. Epigastric discomfort, negative Geronimo's sign. Labs are unremarkable to include normal WBC, Lipase and calcium. CT as above with enlargement of pancreatic head with some mild stranding present. Patient also endorses some heartburn symptoms. Possible acute pancreatitis given location of discomfort, epigastric tenderness and CT finding. Possible reflux contributing to symptoms as well. -Admit to medical -Keep NPO for now -Check triglyceride level with AM lab -LR at 125mL/hr x 2 liters -Protonix 40mg po BID -Tylenol PRN -Morphine as needed per pain scale -Miralax and Colace PRN -Zofran PRN nausea (2) Asthma: Plan: Chronic. Stable. No cough, SOB or wheeze -Continue Fluticasone/Vilanterol daily (3) Ulcerative colitis: Plan: Noted. Monitor for diarrhea F/E/N -LR at 125mL/hr x 2 liters, electrolytes WNL, NPO for now Ppx - Low risk for DVT Code - Full per discussion with patient Dispo - Admit to medical History of Present Illness Chief Complaint: Abdominal pain Primary Care Provider: BLANCO Amor Tyrell Farley is a 32yo male with history of Ulcerative Colitis s/p total abdominal colectomy performed in August 2019, well-controlled asthma presenting with 2 weeks of persistent epigastric discomfort. Patient reports a dull, gnawing pain in his epigastric region that has been intermittently occurring over the last 2 weeks. The pain wakes him from sleep. He has had slight nausea with 1 or 2 episodes of nonbloody, nonbilious vomiting. No exacerbating or relieving factors identified. Patient endorses some increase eructation and GERD symptoms as well. he denies NSAID or alcohol use. He does vape but no combustible tobacco products. In the ER, patient is afebrile, mildly hypertensive, no acute distress. ER course: Fentanyl 50 mcg IV Protonix 40 mg IV Normal saline x1 L Allergies Allergy/AdvReac Type Severity Reaction Status Date / Time amoxicillin Allergy Severe HIVES, Verified 07/25/22 18:55 THROAT SWELLING Home Medications Medication Instructions Recorded Confirmed Type albuterol sulfate 90 mcg/actuation 2 puff inhalation Q4H PRN 07/22/18 07/25/22 History aerosol inhaler (ProAir HFA) Shortness Of Breath Or Wheezing acetaminophen 325 mg tablet 650 mg PO QID PRN Pain 10/06/19 07/25/22 History (Tylenol) fluticasone 100 mcg-salmeterol 50 1 inh inhalation BID 10/06/19 07/25/22 History mcg/dose blistr powdr for inhalation (Advair Diskus) diphenoxylate-atropine 2.5 1 tab PO QID PRN Diarrhea 07/25/22 07/25/22 History mg-0.025 mg tablet paroxetine HCl 20 mg tablet 20 mg PO DAILY 07/25/22 07/25/22 History Past Med/Surg History Medical History Asthma inhalers daily/prn Ulcerative colitis Surgical History (Updated 07/25/22 @ 23:43 by Katy Villa DO) History of colectomy History of colonoscopy History of tonsillectomy History of wisdom tooth extraction Family History Other No family history of adverse response to anesthesia Social History Smoking Status: Current every day smoker Tobacco Type: E-cigarettes / Vaping Cigarettes Per Day: 6 a day; Second Hand Exposure: No; Hx Alcohol Use: No Hx Substance Use: No Preferred Language: Tajik Communication Ability: Effective Plumber'S Assistant Required: No Beliefs That Will Affect Care: None Current Living Situation: Parent and Family Current Living Situation Comment: Lives with parents Feels Safe at Home: Yes Assistive Devices: None Review of Systems Review of Systems: All systems reviewed & are unremarkable except as noted in HPI & below Physical Exam Physical Exam: General: patient resting comfortably, NAD, non-toxic in appearance, AA&O x 4 Skin: warm, dry, intact, no rashes or lesions HEENT: NC/AT, PERRL, EOMI, anicteric sclera, conjunctiva without injection, external ear normal to inspection and nontender, nares patent, moist mucus membranes, dentition intact, no oropharyngeal lesions, neck supple, trachea midline, no LAD, no thyromegaly, no JVD Heart: +S1/S2, regular, no m/r/g Lungs: equal air entry bilaterally, no rales/rhonchi/wheezes Abd: +BS, soft, non-distended, epigastric tenderness, no rebound/guarding/peritonitis, no masses/organomegaly/ascites Ext: warm, 2+ pulses in UE/LE bilaterally, no clubbing/cyanosis or edema Neuro: nonfocal, patient AA&O x 4, speech intact, no facial droop, moving all extremities on command with equal strength 5/5 Results & Data Results & Data Vital Signs (Past 12 Hours) Vital Signs Temp Pulse Pulse Resp BP BP Pulse Ox 07/25/22 21:00 97 07/25/22 20:56 159/88 H 99 07/25/22 20:00 97 07/25/22 19:30 97 07/25/22 18:54 80 20 149/83 H 98 07/25/22 17:37 91 H 13 122/92 97 07/25/22 16:31 98 H 07/25/22 16:33 97 07/25/22 16:32 94 H 20 139/91 97 07/25/22 16:14 36.7 C 101 H 18 143/88 H 98 O2 Del Method 07/25/22 21:00 07/25/22 20:56 07/25/22 20:00 07/25/22 19:30 07/25/22 18:54 Room Air 07/25/22 17:37 Room Air 07/25/22 16:31 07/25/22 16:33 Room Air 07/25/22 16:32 Room Air 07/25/22 16:14 Room Air Laboratory Results Laboratory Results WBC 8.37 K/ul (4.8-10.8) 07/25/22 16:29 RBC 5.00 M/uL (4.70-6.10) 07/25/22 16:29 Hgb 13.9 g/dl (14.0-18.0) L 07/25/22 16:29 Hct 41.5 % (42.0-52.0) L 07/25/22 16:29 MCV 83.0 fL (80.0-100.0) 07/25/22 16: MCH 27.8 pg (25.0-34.0) 07/25/22 16: MCHC 33.5 g/dL (32.0-36.0) 07/25/22 16: RDW Std Deviation 40.8 fL (36.4-46.3) 07/25/22 16: RDW Coeff of Marek 13.6 % (11.5-14.5) 07/25/22: Plt Count 214 K/uL (130-400) 07/25/22 16: MPV 11.7 fL (9.4-12.4) 07/25/22: Immature Gran % (Auto) 0.2 % 07/25/22: Neut % (Auto) 66.9 % 07/25/22: Lymph % (Auto) 22.3 % 07/25/22: Christian % (Auto) 6.7 % 07/25/22: Eos % (Auto) 3.5 % 07/25/22: Baso % (Auto) 0.4 % 07/25/22: Neut # (Auto) 5.60 K/uL (1.40-6.50) 07/25/22: Lymph # (Auto) 1.87 K/uL (1.2-3.4) 07/25/22: Christian # (Auto) 0.56 K/uL (0.11-0.59) 07/25/22: Eos # (Auto) 0.29 K/uL (0-0.50) 07/25/22: Baso # (Auto) 0.03 K/uL (0-0.2) 07/25/22: Immature Gran # (Auto) 0.02 K/uL (0.01-0.20) 07/25/22 16: Sodium 139 mmol/L (136-145) 07/25/22 16: Potassium 4.1 mmol/L (3.5-5.1) 07/25/22 16: Chloride 105 mmol/L (98-107) 07/25/22 16: Carbon Dioxide 27 mmol/L (21-32) 07/25/22 16:29 Anion Gap 7 (3-11) 07/25/22 16:29 BUN 18 mg/dl (6-23) 07/25/22 16:29 Creatinine 1.37 mg/dl (0.6-1.4) 07/25/22 16:29 Est Cr Clr Drug Dosing 93.9 ml/min 07/25/22 16:29 Est GFR ( Amer) 78.5 ml/min 07/25/22 16:29 Est GFR (Non-Af Amer) 67.8 ml/min 07/25/22 16:29 BUN/Creatinine Ratio 13.1 (10-20) 07/25/22 16:29 Glucose 85 mg/dl (70-99(Fasting)) 07/25/22 16:29 Calcium 9.4 mg/dl (8.6-10.3) 07/25/22 16:29 Total Bilirubin 0.2 mg/dl (0.2-1.0) 07/25/22 16:29 AST 18 U/L (13-39) 07/25/22 16:29 ALT 19 U/L (7-52) 07/25/22 16:29 Alkaline Phosphatase 101 U/L (34-104) 07/25/22 16:29 Troponin I High Sens 4.8 pg/ml (0-20) 07/25/22 16:29 Total Protein 7.3 gm/dl (6.0-8.3) 07/25/22 16:29 Albumin 4.2 gm/dl (3.4-5.0) 07/25/22 16:29 Globulin 3.1 gm/dl (2.5-4.0) 07/25/22 16:29 Albumin/Globulin Ratio 1.4 (0.9-2) 07/25/22 16:29 Lipase 28 U/L (11-82) 07/25/22 16:29 SARS-CoV-2, RNA, NAAT NEGATIVE (NEGATIVE) 07/25/22 21:20 Impressions Chest X-Ray 07/25/22 17:14 SINGLE VIEW CHEST CLINICAL HISTORY: Atypical chest pain. FINDINGS: An AP, portable, upright chest radiograph is obtained. No prior studies are available for comparison at the time of dictation. The cardiomediastinal silhouette is unremarkable. The lungs and pleural spaces are clear. No pneumothorax is seen. The bony thorax is grossly intact. IMPRESSION: No active disease in the chest. ACT 112: Negative or not required by law. Electronically signed by: Conor Oh M.D. 07/25/2022 6:14 PM Abdomen/Pelvis CT 07/25/22 17:57 Exam(s): CT ABDOMEN + PELVIS Without Contrast EXAM: CT Abdomen and Pelvis Without Intravenous Contrast CLINICAL HISTORY: Reason for exam: epigastric abdominal pain. TECHNIQUE: Axial computed tomography images of the abdomen and pelvis without intravenous contrast. CTDI is 19.91 mGy and DLP is 1027.64 mGy-cm. Automated exposure control was utilized for the study. A dose lowering technique was utilized adhering to the principles of ALARA. COMPARISON: CT abdomen pelvis 06/15/2019. FINDINGS: Lung bases: Unremarkable. No mass. No consolidation. ABDOMEN: Liver: Unremarkable. Gallbladder and bile ducts: Unremarkable. No calcified stones. No ductal dilation. Pancreas: Relatively enlarged pancreatic head to the remainder of the pancreas with mild adjacent fat stranding. Spleen: Unremarkable. No splenomegaly. Adrenals: Unremarkable. No mass. Kidneys and ureters: Unremarkable. No obstructing stones. No hydronephrosis. Stomach and bowel: Postsurgical change related to prior colectomy. No obstruction. PELVIS: Appendix: See above. Bladder: Unremarkable. No stones. Reproductive: Unremarkable as visualized. ABDOMEN and PELVIS: Intraperitoneal space: Unremarkable. No free air. No significant fluid collection. Bones/joints: Mild degenerative change in lumbar spine. No acute fracture. No dislocation. Soft tissues: Unremarkable. Vasculature: Unremarkable. No abdominal aortic aneurysm. Lymph nodes: Unremarkable. No enlarged lymph nodes. IMPRESSION: Relatively enlarged pancreatic head to the remainder of the pancreas with mild adjacent fat stranding. This could potentially represent acute pancreatitis in the appropriate clinical scenario. Electronically signed by: Bladimir Sutton MD 07/25/22 20:23 PM ECG Additional Comments: EKG - per my interpretation - study reveals NSR at 95bpm, normal axis, UE=312, QRS=96, IKw=[id number], no acute ischemia. No prior study available for comparison. PG Care Time/CCT Total # of Minutes Spent Total Time Spent with Patient: Total time spent is greater than 50% in coordination of care (as documented) at patient's floor/unit and/or counseling patient: Coding Level of Care Code 35785 INT INP/OBS CARE 2/55MIN Diagnoses Abdominal pain, epigastric R10.13 Asthma J45.909 Ulcerative colitis K51.919 Digestive disease complication type: unspecified complication Ulcerative colitis location: unspecified ulcerative colitis location (3) Ulcerative colitis Digestive disease complication type: unspecified complication Ulcerative colitis location: unspecified ulcerative colitis location Qualified Code(s): K51.919 - Ulcerative colitis, unspecified with unspecified complications
[2022-07-25] MEDS ORDERED: MoRPHine SULFATE 2 MG/ML CARP IV PRN (23:18)
[2022-07-25] MEDS ORDERED: ACETAMINOPHEN 325 MG TAB PO PRN (23:18)
[2022-07-25] MEDS ORDERED: ONDANSETRON INJ 2 MG/ML 2 ML VIAL IV PRN (23:18)
[2022-07-25] MEDS ORDERED: POLYETHYLENE (MIRALAX) 17 GM PACK PO PRN (23:18)
[2022-07-25] MEDS ORDERED: DOCUSATE SODIUM 100 MG CAP PO PRN (23:18)
[2022-07-25] MEDS: LACTATED RINGER'S 1,000 ML IV SCH (23:38)
[2022-07-26] MEDS: MoRPHine SULFATE 4 MG/ML 1 ML CARP\\VIAL IV PRN ×4 (00:35→15:32)
[2022-07-26 07:13] LABS: Mean Corpuscular Hemoglobin 26.7 pg (25.0-34.0); Mean Corpuscular Hgb Conc 31.7 g/dL (32.0-36.0); Mean Corpuscular Volume 84.2 fL (80.0-100.0); Mean Platelet Volume 11.3 fL (9.4-12.4); Platelet Count 173 K/uL (130-400); RDW Coefficient of Variation 13.5 % (11.5-14.5); RDW Standard Deviation 41.7 fL (36.4-46.3); Red Blood Count 4.87 M/uL (4.70-6.10); White Blood Count 5.55 K/ul (4.8-10.8)
[2022-07-26 07:24] LABS: Calcium 8.9 mg/dl (8.6-10.3); Chol HDL Ratio 4.2 (0-5); Creatinine Clr Calc Pharmacy 111.5 ml/min; Est GFR (African American) 97.1 ml/min; Est GFR (Non-African American) 83.7 ml/min; Potassium 3.9 mmol/L (3.5-5.1)
[2022-07-26] MEDS: LACTATED RINGER'S 1,000 ML IV SCH (07:25)
[2022-07-26] MEDS: PANTOprazole 40 MG TAB PO SCH ×2 (07:26→20:22)
[2022-07-26] MEDS: PARoxetine HCL 20 MG TAB PO SCH (07:26)
[2022-07-26] MEDS: FLUTICASONE/VILANTEROL 100/25MCG 14 PUFFS/INHALER INH SCH (07:26)
[2022-07-26] MEDS ORDERED: FLUTICASONE/SALMETEROL 100/50 (ADVAIR) 14 PUFF/1 INHALER INH SCH (09:00)
[2022-07-26] MEDS ORDERED: PANTOprazole 40 MG TAB PO SCH (09:00)
--- NOTE | 2022-07-26 12:57 | Electrocardiogram Report ---
Test Reason : Blood Pressure : / mmHG Vent. Rate : 095 BPM Atrial Rate : 095 BPM P-R Int : 134 ms QRS Dur : 096 ms QT Int : 334 ms P-R-T Axes : 068 061 040 degrees QTc Int : 419 ms Normal sinus rhythm Normal ECG No previous ECGs available Confirmed by Jay Ramirez ([id number]) on 07/26/2022 12:57:11 PM Referred By: REFERRED SELF Confirmed By:Jay Ramirez
[2022-07-26] MEDS ORDERED: oxyCODONE HCL IR 5 MG TAB (IMMEDIATE RELEASE) PO PRN (16:08)
[2022-07-26] MEDS ORDERED: MoRPHine SULFATE 2 MG/ML CARP IV PRN (16:10)
--- NOTE | 2022-07-26 16:13 | Hospitalist Progress Note ---
Date of Service July 26, 2022 Assessment & Plan (1) Abdominal pain, epigastric: Plan: 32yo male with history of Ulcerative Colitis s/p colectomy, well controlled asthma presenting with 2 weeks of epigastric discomfort. Patient is afebrile, HD stable, non-toxic in appearance. Epigastric discomfort, negative Geronimo's sign. Labs are unremarkable to include normal WBC, Lipase and calcium. CT as above with enlargement of pancreatic head with some mild stranding present. Patient also endorses some heartburn symptoms. Possible acute pancreatitis given location of discomfort, epigastric tenderness and CT finding. Possible reflux contributing to symptoms as well. Continue conservative treatment with bowel rest, IV fluids, morphine as needed, Zofran as needed Added oxycodone for milder pain Explained to the patient that he will be kept n.p.o. for as long as he is requiring IV narcotics. (2) Asthma: Plan: Chronic. Stable. No cough, SOB or wheeze -Continue Fluticasone/Vilanterol daily (3) Ulcerative colitis: Plan: Noted. Monitor for diarrhea Ppx - Low risk for DVT Code - Full per H&P Admission and Anticipated Discharge Date Admission Date: July 25, 2022 Subjective Patient says that his abdominal pain has improved to a 5/10 today. Yesterday it was as bad as 10/10. Not nauseous or vomiting today. Still using morphine quite frequently. Review of Systems Review of Systems: All systems reviewed & are unremarkable except as noted in Subjective Physical Exam Physical Exam: General: Awake, conversant Heart: S1, S2/regular rate and rhythm, no murmur rubs or gallops Lungs: Clear to auscultation bilaterally. Normal effort Abdomen: Soft/nondistended. Epigastric tenderness with no rebound, rigidity or guarding. No hepatosplenomegaly Extremities: No clubbing/cyanosis. No edema Behavior: Appropriate, cooperative Results & Data Results & Data Vital Signs (Past 12 Hours) Vital Signs Temp Pulse Resp BP Pulse Ox O2 Del Method 07/26/22 15:27 36.7 C 65 18 124/83 97 Room Air 07/26/22 07:31 36.4 C L 60 18 106/70 97 Room Air Laboratory Results Abnormal lab results 07/25/22 07/26/22 Range/Units 16:29 06:11 Hgb 13.9 L 13.0 L (14.0-18.0) g/dl Hct 41.5 L 41.0 L (42.0-52.0) % MCHC 31.7 L (32.0-36.0) g/dL Diagnostic Findings Chest X-Ray 07/25/22 17:14 SINGLE VIEW CHEST CLINICAL HISTORY: Atypical chest pain. FINDINGS: An AP, portable, upright chest radiograph is obtained. No prior studies are available for comparison at the time of dictation. The cardiomediastinal silhouette is unremarkable. The lungs and pleural spaces are clear. No pneumothorax is seen. The bony thorax is grossly intact. IMPRESSION: No active disease in the chest. ACT 112: Negative or not required by law. Electronically signed by: Conor Oh M.D. 07/25/2022 6:14 PM Abdomen/Pelvis CT 07/25/22 17:57 Exam(s): CT ABDOMEN + PELVIS Without Contrast EXAM: CT Abdomen and Pelvis Without Intravenous Contrast CLINICAL HISTORY: Reason for exam: epigastric abdominal pain. TECHNIQUE: Axial computed tomography images of the abdomen and pelvis without intravenous contrast. CTDI is 19.91 mGy and DLP is 1027.64 mGy-cm. Automated exposure control was utilized for the study. A dose lowering technique was utilized adhering to the principles of ALARA. COMPARISON: CT abdomen pelvis 06/15/2019. FINDINGS: Lung bases: Unremarkable. No mass. No consolidation. ABDOMEN: Liver: Unremarkable. Gallbladder and bile ducts: Unremarkable. No calcified stones. No ductal dilation. Pancreas: Relatively enlarged pancreatic head to the remainder of the pancreas with mild adjacent fat stranding. Spleen: Unremarkable. No splenomegaly. Adrenals: Unremarkable. No mass. Kidneys and ureters: Unremarkable. No obstructing stones. No hydronephrosis. Stomach and bowel: Postsurgical change related to prior colectomy. No obstruction. PELVIS: Appendix: See above. Bladder: Unremarkable. No stones. Reproductive: Unremarkable as visualized. ABDOMEN and PELVIS: Intraperitoneal space: Unremarkable. No free air. No significant fluid collection. Bones/joints: Mild degenerative change in lumbar spine. No acute fracture. No dislocation. Soft tissues: Unremarkable. Vasculature: Unremarkable. No abdominal aortic aneurysm. Lymph nodes: Unremarkable. No enlarged lymph nodes. IMPRESSION: Relatively enlarged pancreatic head to the remainder of the pancreas with mild adjacent fat stranding. This could potentially represent acute pancreatitis in the appropriate clinical scenario. Electronically signed by: Bladimir Sutton MD 07/25/22 20:23 PM PG Care Time/CCT Total # of Minutes Spent Total Time Spent with Patient: Total time spent is greater than 50% in coordination of care (as documented) at patient's floor/unit and/or counseling patient: Coding Level of Care Code 23090 SUB INP/OBS CARE 2/35MIN Diagnoses Abdominal pain, epigastric R10.13 Asthma J45.909 Ulcerative colitis K51.919 Digestive disease complication type: unspecified complication Ulcerative colitis location: unspecified ulcerative colitis location (3) Ulcerative colitis Digestive disease complication type: unspecified complication Ulcerative colitis location: unspecified ulcerative colitis location Qualified Code(s): K51.919 - Ulcerative colitis, unspecified with unspecified complications
[2022-07-26] MEDS: SODIUM CHLORIDE 0.9% 1000ML 1,000 ML IV SCH (17:50)
[2022-07-27] MEDS: SODIUM CHLORIDE 0.9% 1000ML 1,000 ML IV SCH ×4 (00:56→21:56)
[2022-07-27 06:25] LABS: BUN Creatinine Ratio 10.9 (10-20); Calcium 8.7 mg/dl (8.6-10.3); Creatinine Clr Calc Pharmacy 116.5 ml/min; Est GFR (African American) 102.4 ml/min; Est GFR (Non-African American) 88.4 ml/min; Potassium 4.1 mmol/L (3.5-5.1)
[2022-07-27] MEDS: PARoxetine HCL 20 MG TAB PO SCH (07:50)
[2022-07-27] MEDS: PANTOprazole 40 MG TAB PO SCH ×2 (07:50→20:20)
[2022-07-27] MEDS: FLUTICASONE/VILANTEROL 100/25MCG 14 PUFFS/INHALER INH SCH (07:51)
--- NOTE | 2022-07-27 15:34 | Hospitalist Progress Note ---
Date of Service July 27, 2022 Assessment & Plan (1) Abdominal pain, epigastric: Plan: 32yo male with history of Ulcerative Colitis s/p colectomy, well controlled asthma presenting with 2 weeks of epigastric discomfort. Patient is afebrile, HD stable, non-toxic in appearance. Epigastric discomfort, negative Geronimo's sign. Labs are unremarkable to include normal WBC, Lipase and calcium. CT as above with enlargement of pancreatic head with some mild stranding present. Patient also endorses some heartburn symptoms. Possible acute pancreatitis given location of discomfort, epigastric tenderness and CT finding. Possible reflux contributing to symptoms as well. Pain significantly improved Not using IV narcotics Advance diet to clear liquids May use oxycodone for milder pain We will advance diet further tomorrow (2) Asthma: Plan: Chronic. Stable. No cough, SOB or wheeze -Continue Fluticasone/Vilanterol daily (3) Ulcerative colitis: Plan: Noted. Monitor for diarrhea Ppx - Low risk for DVT Code - Full per H&P Admission and Anticipated Discharge Date Admission Date: July 25, 2022 Subjective Patient feels well today. Denies chest pain or shortness of breath. Abdominal pain seems to have resolved. He says that he is hungry. He has not used IV narcotics since last night. Review of Systems Review of Systems: All systems reviewed & are unremarkable except as noted in Subjective Physical Exam Physical Exam: General: Awake, conversant Heart: S1, S2/regular rate and rhythm, no murmur rubs or gallops Lungs: Clear to auscultation bilaterally. Normal effort Abdomen: Soft/nondistended. Epigastric tenderness has resolved. No hepatosplenomegaly Extremities: No clubbing/cyanosis. No edema Behavior: Appropriate, cooperative Results & Data Results & Data Vital Signs (Past 12 Hours) Vital Signs Temp Pulse Resp BP Pulse Ox O2 Del Method 07/27/22 07:50 36.6 C 69 14 120/71 98 Room Air PG Care Time/CCT Total # of Minutes Spent Total Time Spent with Patient: Total time spent is greater than 50% in coordination of care (as documented) at patient's floor/unit and/or counseling patient: Coding Level of Care Code 31511 SUB INP/OBS CARE 2/35MIN Diagnoses Abdominal pain, epigastric R10.13 Asthma J45.909 Ulcerative colitis K51.919 Digestive disease complication type: unspecified complication Ulcerative colitis location: unspecified ulcerative colitis location (3) Ulcerative colitis Digestive disease complication type: unspecified complication Ulcerative colitis location: unspecified ulcerative colitis location Qualified Code(s): K51.919 - Ulcerative colitis, unspecified with unspecified complications
[2022-07-28] MEDS: SODIUM CHLORIDE 0.9% 1000ML 1,000 ML IV SCH (04:22)
[2022-07-28] MEDS: PANTOprazole 40 MG TAB PO SCH (08:05)
[2022-07-28] MEDS: PARoxetine HCL 20 MG TAB PO SCH (08:05)
[2022-07-28] MEDS: FLUTICASONE/VILANTEROL 100/25MCG 14 PUFFS/INHALER INH SCH (08:06)
[2022-07-28 10:01] LABS: BUN Creatinine Ratio 7.9 (10-20); Calcium 9.2 mg/dl (8.6-10.3); Creatinine Clr Calc Pharmacy 112.4 ml/min; Est GFR (African American) 98.1 ml/min; Est GFR (Non-African American) 84.6 ml/min; Potassium 3.7 mmol/L (3.5-5.1)
--- NOTE | 2022-07-28 12:50 | Discharge Summary ---
Date of Service July 28, 2022 Admission HPI Per Admitting Provider Tyrell Farley is a 32yo male with history of Ulcerative Colitis s/p total abdominal colectomy performed in August 2019, well-controlled asthma presenting with 2 weeks of persistent epigastric discomfort. Patient reports a dull, gnawing pain in his epigastric region that has been intermittently occurring over the last 2 weeks. The pain wakes him from sleep. He has had slight nausea with 1 or 2 episodes of nonbloody, nonbilious vomiting. No exacerbating or relieving factors identified. Patient endorses some increase eructation and GERD symptoms as well. he denies NSAID or alcohol use. He does vape but no combustible tobacco products. In the ER, patient is afebrile, mildly hypertensive, no acute distress. ER course: Fentanyl 50 mcg IV Protonix 40 mg IV Normal saline x1 L Admission Exam Per Admitting Provider General: patient resting comfortably, NAD, non-toxic in appearance, AA&O x 4 Skin: warm, dry, intact, no rashes or lesions HEENT: NC/AT, PERRL, EOMI, anicteric sclera, conjunctiva without injection, external ear normal to inspection and nontender, nares patent, moist mucus membranes, dentition intact, no oropharyngeal lesions, neck supple, trachea midline, no LAD, no thyromegaly, no JVD Heart: +S1/S2, regular, no m/r/g Lungs: equal air entry bilaterally, no rales/rhonchi/wheezes Abd: +BS, soft, non-distended, epigastric tenderness, no rebound/guarding/peritonitis, no masses/organomegaly/ascites Ext: warm, 2+ pulses in UE/LE bilaterally, no clubbing/cyanosis or edema Neuro: nonfocal, patient AA&O x 4, speech intact, no facial droop, moving all extremities on command with equal strength 5/5 Principal Diagnosis Acute pancreatitis Discharge Exam General: Awake, conversant Heart: S1, S2/regular rate and rhythm, no murmur rubs or gallops Lungs: Clear to auscultation bilaterally. Normal effort Abdomen: Soft/nondistended. Epigastric tenderness has resolved. No hepatosplenomegaly Extremities: No clubbing/cyanosis. No edema Behavior: Appropriate, cooperative Discharge Data Allergies Allergy/AdvReac Type Severity Reaction Status Date / Time amoxicillin Allergy Severe HIVES, Verified 07/25/22 18:55 THROAT SWELLING Consultations 07/25/22 21:03 ED Decision to Admit Stat Ordered Studies 07/25/22 17:57 CT Abd and Pelvis [CT abd pelvis wo con] Stat Hospital Course (1) Abdominal pain, epigastric: 32yo male with history of Ulcerative Colitis s/p colectomy, well controlled asthma presenting with 2 weeks of epigastric discomfort. Patient is afebrile, HD stable, non-toxic in appearance. Epigastric discomfort, negative Geronimo's sign. Labs are unremarkable to include normal WBC, Lipase and calcium. CT as above with enlargement of pancreatic head with some mild stranding present. Patient also endorses some heartburn symptoms. Possible acute pancreatitis given location of discomfort, epigastric tenderness and CT finding. Possible reflux contributing to symptoms as well. Pain significantly improved Not using IV narcotics Tolerated solid diet today Deemed stable for discharge CT abdomen showed no gallstones or ductal dilatation Advised to follow-up with GI in 1 month and PCP in 1 week (2) Asthma: Chronic. Stable. No cough, SOB or wheeze -Continue Fluticasone/Vilanterol daily (3) Ulcerative colitis: Noted. No issues during this hospital stay Ppx - Low risk for DVT Code - Full per H&P Total Time Total Time Spent Total Time Spent (In Minutes): 35 Discharge Plan Discharge Items Patient Disposition: Home - Self-Care Reason For Visit: EPIGASTRIC ABDOMINAL PAIN Discharge Diagnosis: Acute pancreatitis Activity: Resume your previous activity Non-emergency contact: Primary Care Provider Call non-emergency contact if: you have any medication questions Follow-up/Referrals: Patria Montes CRNP [Primary Care Provider] - 08/01/22 9:20 am (If unable to keep your follow up appointment please call the office to reschedule. ) Diet: Regular Addtl Attending Provider Instructions: Advised to follow-up with PCP in 1 week Advised to follow-up with staffing administrator in 1 month Pending Studies at Discharge: No Stand-Alone Forms: [facility] Medications and DC Order Prescriptions: Continued albuterol sulfate [ProAir HFA] 90 mcg/actuation Hfa Aerosol Inhaler 2 puff INHALATION Q4H PRN (Reason: Shortness Of Breath Or Wheezing) acetaminophen [Tylenol] 325 mg Tablet 650 mg PO QID PRN (Reason: Pain) fluticasone propion-salmeterol [Advair Diskus] 100-50 mcg/dose Blister With Device 1 inh INHALATION BID diphenoxylate-atropine 2.5-0.025 mg tablet 1 tab PO QID PRN (Reason: Diarrhea) paroxetine HCl 20 mg tablet 20 mg PO DAILY Discharge Orders: Discharge Order (Routine); Ordered 07/28/22 Ordered By: Rubina Kearns/Other Patient Handouts: Understanding Pancreatitis, Understanding the Pain Response, Pancreatitis Acute Dc Admission Data Admit Date/Time: 07/25/22 21:14 Attending Provider: Rubina Turcios Admit Provider: Katy Villa Primary Care Provider: Patria Montes Other Providers: Katy Villa Other Interventions: Discharge Summary Assessment (RN) Last Done: 07/28/22 13:23 Coding Level of Care Code 04709 INP/OBS DISCH >30 MIN Diagnoses Abdominal pain, epigastric R10.13 Asthma J45.909 Ulcerative colitis K51.919 Digestive disease complication type: unspecified complication Ulcerative colitis location: unspecified ulcerative colitis location
== END 2022-07-28 13:55 | disposition home or self-care (01) ==
LOC: ED 16:11 → SUATTDRO 21:14 → 3W 21:14 → INTOOBSV 21:14 → 3W 23:02